=== PATIENT | male | born 1950 | race Caucasian/White ===

== ENCOUNTER 2017-09-05 12:06 | Outpatient (CLI) | payer OTHER ==
[2017-09-05 15:51] LABS: #Basophils 0.1 thou/uL (0.0-0.2); #Eosinphils 0.4 thou/uL (0.0-0.7); #Lymphocytes 2.3 thou/uL (1.20-3.40); #Monocytes 0.7 thou/uL (0.11-0.59); %Eosinophils 5.4 % (0.0-10.0); %Lymphocytes 31.2 % (21.0-51.0); Hematocrit 47.1 % (42.0-52.0); Mean Platelet Volume 6.8 fL (7.4-10.4); Red Blood Cell (RBC) Count 5.17 mill/uL (4.70-6.10); White Blood Cell (WBC) Count 7.4 thou/uL (4.8-10.8)
[2017-09-05 16:09] LABS: Anion Gap 16 mmol/L (10-20); BUN (Urea Nitrogen) 11 mg/dL (8.4-25.7); Calc. Creatinine Clearance 0 mL/min (70-130); Calcium 9.6 mg/dL (7.8-10.44); Carbon Dioxide 28 mmol/L (23-31); Chloride 101 mmol/L (98-107); Estimated GFR-MDRD 85
== END 2017-09-05 12:07 | disposition home or self-care (01) ==
LOC: LABBT 12:06
PROVIDERS: ATTEND Specialist
DX: Z01.818 Encounter for other preprocedural examination (principal); K40.90 Unilateral inguinal hernia, without obstruction or gangrene, not specified as recurrent
CPT/HCPCS: 80048; 85025; 93005; 93010

== ENCOUNTER 2017-09-07 10:51 | Day surgery (SDC) | payer OTHER ==
[2017-09-05 12:24] VITALS: BMI 28.5
[2017-09-07] MEDS ORDERED: Ketorolac Tromethamine 30 MG/ML VIAL ONE (12:34)
[2017-09-07] MEDS ORDERED: CEFAZOLIN/Water 2 GM/20 ML SYRINGE ONE (12:34)
[2017-09-07] MEDS ORDERED: Bupivacaine 0.25% HCL 30 ML VIAL ONE (13:44)
[2017-09-07] MEDS ORDERED: Lidocaine 2% w/Epinephrine 1:200K 20 ML VIAL ONE (13:44)
[2017-09-07] MEDS ORDERED: Fentanyl 250 MCG/5 ML VIAL ONE (13:45)
[2017-09-07] MEDS ORDERED: Bupivacaine PF 0.5% 30 ML VIAL ONE (14:06)
[2017-09-07] MEDS ORDERED: Glycopyrrolate 0.2 MG/ML 5 ML SYRINGE ONE (14:27)
[2017-09-07] MEDS ORDERED: Lidocaine 1% PF 5 ML VIAL ONE (14:27)
[2017-09-07] MEDS ORDERED: Ondansetron HCl/PF 4 MG/2 ML Vial ONE (14:27)
[2017-09-07] MEDS ORDERED: ePHEDrine/0.9% NaCl/PF SYRINGE 50 mg/10 ml ONE (14:27)
[2017-09-07] MEDS ORDERED: Dexamethasone 20 MG/5 ML VIAL ONE (14:27)
[2017-09-07] MEDS ORDERED: Succinylcholine Chloride 20 MG/ML 10 ml SYRINGE FS ONE (14:27)
[2017-09-07] MEDS ORDERED: Propofol 200 MG/20 ML VIAL ONE (14:27)
[2017-09-07] MEDS ORDERED: HYDROcodone/Acetaminophen 5/325 mg Tablet ONE (17:47)
--- NOTE | 2017-09-08 10:41 | OP ---
DATE OF PROCEDURE: 09/07/2017 PREOPERATIVE DIAGNOSIS: Left inguinal hernia. POSTOPERATIVE DIAGNOSIS: Left inguinal hernia, relatively small indirect hernia with cord lipoma. OPERATION PERFORMED: Robotic left inguinal hernia repair with placement of a large left 3DMax mesh patch. SURGEON: Robby Collins M.D. ANESTHESIA: General endotracheal. INDICATIONS: The patient is a 67-year-old white male. He is status post prior right inguinal herni a repair. This was performed as an open surgery with a mesh patch and plug. The patient had discom fort in his right groin prior to surgery and continued to have some right groin discomfort after santo sukhwinder. I was never convinced that his hernia was the source of his discomfort before or after surger y. He had no surgical problems. At this time, he presents complaining of left groin pain. On exam ination, he does have a small left inguinal hernia, but with significant discomfort with examination . He has opted for left inguinal hernia repair. I have recommended this as a laparoscopic/robotic repair. DESCRIPTION OF OPERATIVE: Informed consent was obtained. The patient was taken to the operating ro om where general endotracheal anesthesia was obtained with the patient in supine position. Bhatti ca theter was placed. Abdomen was trimmed of hair, prepped with ChloraPrep and draped in sterile fashi on. Local anesthetic was infiltrated and a 12 mm supraumbilical incision was created through which a Veress needle was passed into the peritoneal cavity. Pneumoperitoneum was established using carbo n dioxide up to a pressure of 15 mmHg. A 12 mm trocar port was passed through this same incision. Laparoscopic camera was passed through this port. Under direct vision, 2 additional 8 mm robotic po rts were placed on either side of midline at the same level. The robot was then docked to the ports and the camera and the operation was continued from the robotic console. I initially examined the right groin. The mesh plug was easily visualized. There was no evidence o f a right inguinal hernia. The plug was mobile. Attention was turned to the left. There was evidence of a small left inguinal hernia, as anticipate d. A transverse peritoneal incision was created several centimeters superior to the hernia. Preper itoneal dissection was carried out using a combination of blunt and sharp dissection extending deepl y. I dissected down to the pubic tubercle and J Carlos's ligament medially. The peritoneum was disse cted off the cord structures with reduction of the hernia. The vas deferens was dissected as it div erted medially. The cord lipoma was identified and reduced from the cord and resected. The lateral space was dissected to allow room for mesh placement. A large left 3DMax mesh patch was obtained and placed within the preperitoneal space where it fit ni bridget. It was secured in place with 3 interrupted sutures of 2-0 Vicryl, one of which was placed to the pubic tubercle, one to the anterior abdominal wall just medial to the epigastric vessels, and fi brenda one was placed on the superior aspect of the lateral tail of the mesh patch, above the iliopub ic tract. Hemostasis had been meticulous throughout the procedure. The peritoneum was then closed using a running suture of 3-0 Stratafix. The 12 mm fascial defect was closed with 0 Vicryl suture using a GraNee needle. All ports and instr uments were removed under direct vision. Pneumoperitoneum was carefully evacuated. Quarter percent Marcaine with epinephrine was infiltrated in each port site. Skin edges approximated with 4-0 Hardy cryl subcuticular suture. Dermabond was placed externally. There were no complications. The patie nt tolerated the procedure well and was taken to recovery room in stable condition.
== END 2017-09-07 20:45 | disposition home or self-care (01) ==
LOC: SDC 10:51
PROVIDERS: ATTEND Specialist
PROC: 0YU64JZ Supplement Left Inguinal Region with Synthetic Substitute, Percutaneous Endoscopic Approach (ICD-10-PCS; principal; 2017-09-07)
PROC: 8E0W4CZ Robotic Assisted Procedure of Trunk Region, Percutaneous Endoscopic Approach (ICD-10-PCS; principal; 2017-09-07)
DX: K40.90 Unilateral inguinal hernia, without obstruction or gangrene, not specified as recurrent (principal); D17.6 Benign lipomatous neoplasm of spermatic cord; I10 Essential (primary) hypertension; E78.00 Pure hypercholesterolemia, unspecified; R73.03 Prediabetes; M19.90 Unspecified osteoarthritis, unspecified site; I83.90 Asymptomatic varicose veins of unspecified lower extremity; N40.0 Benign prostatic hyperplasia without lower urinary tract symptoms; N52.9 Male erectile dysfunction, unspecified; H91.91 Unspecified hearing loss, right ear; H43.399 Other vitreous opacities, unspecified eye; M54.9 Dorsalgia, unspecified; G89.29 Other chronic pain; F41.9 Anxiety disorder, unspecified; Z79.84 Long term (current) use of oral hypoglycemic drugs; Z79.1 Long term (current) use of non-steroidal anti-inflammatories (NSAID); Z79.899 Other long term (current) drug therapy; Z90.89 Acquired absence of other organs; Z98.890 Other specified postprocedural states; Z87.891 Personal history of nicotine dependence; Z87.828 Personal history of other (healed) physical injury and trauma
CPT/HCPCS: C1781; J0131; J1100; J1885; J2001; J2405; J2704; J3010; S0020

== ENCOUNTER 2018-09-10 13:42 | Outpatient (CLI) | payer BC ==
--- NOTE | 2018-09-10 15:23 | ULT ---
RENAL ULTRASOUND: Comparison: CT abdomen/pelvis 01-14-16 History: Retention of urine. Technique: Multiplanar grayscale and color doppler images were obtained in a renal ultrasound. FINDINGS: Both kidneys demonstrate normal cortical echogenicity. There is a calcification in the right kidney m easuring 7 mm in greatest dimension. No hydronephrosis is seen on either side. In the midportion of t he right kidney, there is an area demonstrating the same echogenicity as the cortex. This could repre sent a lobulation. It could also represent a mass emanating from the anterior aspect of the right kid lyn. No lobulation or mass is seen in this location on prior CTs. The left kidney shows no focal abno rmality. The kidneys measures 13.4 and 14.2 cm in length on the right and left, respectively. Limited visualization of the urinary bladder unremarkable. IMPRESSION: Possible lobulation versus mass in the midportion of the right kidney. A CT of the abdomen per renal mass protocol is recommended for better visualization and evaluation of this region. POS: SEGUN
== END 2018-09-10 13:43 | disposition home or self-care (01) ==
LOC: BICULT 13:42
PROVIDERS: ATTEND Urology
DX: R33.9 Retention of urine, unspecified (principal)
CPT/HCPCS: 36415; 76770; 80048; 81001; 87086

== ENCOUNTER 2018-09-18 13:51 | Outpatient (CLI) | payer BC ==
[~2018-09-18 13:51] MED LIST: Iopamidol 370 76% 100 ML VIAL ONE
--- NOTE | 2018-09-18 17:46 | CT ---
CT OF ABDOMEN WITH AND WITHOUT CONTRAST RENAL MASS PROTOCOL 09/18/18 CLINICAL HISTORY: Contour abnormality of the mid right kidney on recent ultrasound, 09/10/18. FINDINGS: Lobularity of the right kidney noted on preceding ultrasound corresponds to the benign appearing efrain l parenchyma by CT imaging. There are several small hypodensities involving the renal parenchyma bila terally indicating cysts, although too small to definitively characterize. There is localized atrophy of the mid and upper left kidney. No hydronephrosis of nephrolithiasis. Scattered vascular disease is present. No acute abnormality of the solid abdominal organs. No free ai r or ascites. Bowel is incompletely assessed without enteric contrast administration. The visualized lung bases reveal no evidence of consolidation or effusion. There is punctate subpleural nodularity o f the lateral left lower lobe, inferiorly. No acute osseous pathology, with scattered osseous degener ative changes present. IMPRESSION: 1. No suspicious renal mass. Prior ultrasound finding is attributable to lobularity of the renal parenchyma. There are several small hypodensities of the kidneys bilaterally, statistically favoring cysts. 2. Localized atrophy of the upper to mid left kidney. 3. Subpleural nodularity of the left lung base. Recommend dedicated CT thorax for further assess ment. POS: SEGUN
== END 2018-09-18 13:52 | disposition home or self-care (01) ==
LOC: BICCT 13:51
PROVIDERS: ATTEND Urology
DX: N28.1 Cyst of kidney, acquired (principal); N28.9 Disorder of kidney and ureter, unspecified; R33.9 Retention of urine, unspecified; N26.1 Atrophy of kidney (terminal); R91.8 Other nonspecific abnormal finding of lung field
CPT/HCPCS: 74170

== ENCOUNTER 2018-10-01 15:37 | Outpatient (CLI) | payer BC ==
--- NOTE | 2018-10-01 16:56 | RAD ---
PA AND LATERAL CHEST: HISTORY: Pulmonary nodule noted on CT examination. FINDINGS: Heart size and mediastinum are within normal limits. The lungs are clear of infiltrates. A small pl eural-based area of nodularity is seen in the left base on CT examination. This is not definitely ap preciated on chest film. No additional nodules are seen. IMPRESSION: Unremarkable chest. The small pleural-based nodule in the left base noted on CT is not seen on plain film. POS: H
== END 2018-10-01 15:38 | disposition home or self-care (01) ==
LOC: BICRAD 15:37
PROVIDERS: ATTEND Urology
DX: R91.1 Solitary pulmonary nodule (principal); R33.9 Retention of urine, unspecified
CPT/HCPCS: 71046

== ENCOUNTER 2019-11-21 19:31 | Inpatient (IN) | payer BC, MEDICARE, OTHER ==
[~2019-11-21 19:31] MED LIST changes: -Iopamidol 370 76% 100 ML VIAL ONE; +Iopamidol-370 76% 500 ML 1 ML ONE
[2019-11-21 20:13] LABS: #Basophils 0.1 thou/uL (0.0-0.2); #Eosinphils 0.4 thou/uL (0.0-0.7); #Lymphocytes 2.7 thou/uL (1.20-3.40); #Monocytes 0.7 thou/uL (0.11-0.59); #Neutrophils 4.7 thou/uL (1.40-6.50); %Eosinophils 5.1 % (0.0-10.0); %Lymphocytes 31.2 % (21.0-51.0); %Monocytes 8.2 % (0.0-10.0); %Neutrophils 54.6 % (42.0-75.0); Hemoglobin 14.9 g/dL (14.0-18.0); Mean Corpuscular HGB CONC 32.8 g/dL (32.0-36.0); Mean Corpuscular Hemoglobin 29.2 pg (27.0-31.0); Mean Corpuscular Volume 88.9 fL (78.0-98.0); Mean Platelet Volume 6.8 fL (7.4-10.4); Platelet Count 243 thou/uL (130-400); RBC Distribution Width 12.4 % (11.5-14.5); White Blood Cell (WBC) Count 8.5 thou/uL (4.8-10.8)
--- NOTE | 2019-11-21 20:14 | RAD ---
Chest one view HISTORY: Chest pain. COMPARISON: 10/01/2018. FINDINGS: Cardiac silhouette is magnified and upper limits of normal in size. Diffuse coarsened inter stitium is similar in appearance to the previous exam. Mediastinum is midline. No lobar consolidation or evidence of pneumothorax. Right lateral costophrenic angle is excluded from the imag e. IMPRESSION: Chronic-type findings are stable. No active cardiopulmonary abnormalities are demonstrate d.
[2019-11-21 20:33] LABS: ALT (SGPT) 28 U/L (8-55); AST (SGOT) 20 U/L (5-34); Albumin 4.4 g/dL (3.4-4.8); Alkaline Phosphatase 101 U/L (40-110); Anion Gap 11 mmol/L (10-20); BUN (Urea Nitrogen) 10 mg/dL (8.4-25.7); Bilirubin, Total 1.2 mg/dL (0.2-1.2); CK (CPK) 92 U/L (30-200); Calc. Creatinine Clearance 0 mL/min (70-130); Calcium 9.3 mg/dL (7.8-10.44); Carbon Dioxide 30 mmol/L (23-31); Chloride 104 mmol/L (98-107); Estimated GFR-MDRD 60; Globulin 2.7 g/dL (2.4-3.5); Glucose 128 mg/dL (80-115); Potassium 3.8 mmol/L (3.5-5.1); Protein, Total 7.1 g/dL (5.8-8.1); Sodium 141 mmol/L (136-145)
[2019-11-21] MEDS ORDERED: Aspirin Chewable 81 MG TAB ONE (20:35)
[2019-11-21] MEDS ORDERED: Nitroglycerin 2% Ointment 1 INCH/1 GM Packet ONE (20:36)
[2019-11-21 20:55] LABS: CKMB 1.4 ng/mL (0-6.6)
--- NOTE | 2019-11-21 21:04 | CT ---
CT arteriogram chest with IV contrast and 3-D imaging CT arteriogram abdomen with IV contrast and 3-D imaging HISTORY: Chest and abdomen pain. Radiation to the back. FINDINGS: There is good contrast opacification of the central pulmonary arteries and the aorta with n ormal branching of the great vessels. Arterial calcification most pronounced at the coronary arteries. No evidence of intimal dissection. Normal caliber. No adjacent fluid. Visceral arteries of the abdomen are patent. Good flow into each common iliac artery. Multiple small left renal arteries. Tiny nodules are present within each lung, including 5 mm nodules within the right upper, lower, and middle lobes and a 7 mm nodule at the left lateral costophrenic angle. No pleural fluid or mediastinal adenopathy. Bilateral pars interarticularis defects are evident at the lowest lumbar leve l on the inferior most image. Small cyst at the superior pole of the right kidney. IMPRESSION: No CT evidence of aortic dissection or injury. Atherosclerosis. Multiple small bilateral parenchymal lung nodules. Please consider follow-up CT in 6 months to evalua te for stability.
[2019-11-21 23:34] LABS: Troponin I 0.099 ng/mL (< 0.028)
[2019-11-22] MEDS ORDERED: Promethazine HCl 12.5 MG in Sodium Chloride 0.9% 50 ML IVPB PRN (01:09)
[2019-11-22] MEDS ORDERED: Ondansetron PF 4 MG/2 ML Vial IVP PRN ×2 (01:09→21:43)
[2019-11-22] MEDS ORDERED: cloNIDine 0.1 MG TAB PO PRN (01:09)
[2019-11-22] MEDS ORDERED: Morphine 2 MG/ML SYRINGE SLOW IVP PRN ×2 (01:09→21:43)
[2019-11-22] MEDS ORDERED: hydrALAZINE 20 MG/ML VIAL SLOW IVP PRN ×2 (01:09→21:43)
[2019-11-22] MEDS ORDERED: Bisacodyl 10 MG SUPP PR PRN ×2 (01:11→21:43)
[2019-11-22] MEDS ORDERED: Bisacodyl 5 MG TAB PO PRN ×2 (01:11→21:43)
[2019-11-22] MEDS ORDERED: HYDROcodone/Acetaminophen 5/325 mg Tablet PO PRN (01:11)
[2019-11-22] MEDS ORDERED: Acetaminophen 325 MG TAB PO PRN (01:11)
[2019-11-22] MEDS ORDERED: Dextrose 5% in Water 1,000 ML IV PRN ×2 (01:14→21:59)
[2019-11-22] MEDS ORDERED: HumaLOG 300 UNITS/3 ML VIAL SC PRN (01:14)
[2019-11-22] MEDS ORDERED: Dextrose 50% Abboject 50 ML SYRINGE SLOW IVP PRN (01:14)
--- NOTE | 2019-11-22 01:14 | PDOC.HHP ---
Hospitalist HPI - History of Present Illness Chest/jaw/arm pain History of Present Illness: Patient is a 69 year old with PMH HTN, HLD, hernia, aneurism of aorta who presents for L arm pain, chest pain, jaw pain that began today, patient reports checking BP and was elevated, in ED was SBP 190s, patient received ASA and nitropaste, which improved BP to SBP 130s and resolved symptoms. Patient takes lisinopril at home and BP usually controlled he does not know why BP is higher than usual, denies history of stent or bypass. In ED, CT chest dissection protocol revealed lung nodules recommended f/u imaging in 6 months, CXR without acute findings, EKG NSR w/ nonspecific T wave abnormalities, troponin 0.101 and 0.099, patient admitted to [facility] for further evaluation. ED Course: current meds atorvastatin Fay Nov 21, 2019 20:03 CHERIE Lion Alexanda TABLET : Strength - 40 mg : ORAL Patient Dose: 10 mg Oral once a day (at bedtime). tamsulosin [facility] Nov 21, 2019 20:04 CHERIE Lion Alexanda CAPSULE, EXT RELEASE 24 HR : Strength - 0.4 mg : ORAL Patient Dose: 1 tab(s) Oral once a day (at bedtime). metFORMIN [facility] Nov 21, 2019 20:04 CHERIE Lion Alexanda tablet : Strength - 500 mg : ORAL Patient Dose: 1 tab(s) Oral once a day. lisinopril [facility] Nov 21, 2019 20:05 CHERIE Lion Alexanda tablet : Strength - 10 mg : ORAL Patient Dose: 1 tab(s) Oral once a day. VITAL SIGNS [facility] Nov 21, 2019 21:34 CHERIE Lion Alexanda BP: 132/86 Pulse: 70 Resp: 16 Temp: 97.9 (Oral) Pain: 0 O2 sat: 93 on (Room Air) Time: 11/21/2019 21:34. EKG reviewed, NSR rate 62 nonspecific T wave abnormalities Hospitalist ROS - Review of Systems Constitutional: denies: fever, chills, sweats, weakness, malaise, other Eyes: denies: pain, vision change, conjunctivae inflammation, eyelid inflammation, redness, other ENT: denies: ear pain, ear discharge, nose pain, nose discharge, nose congestion , mouth pain, mouth swelling, throat pain, throat swelling, other Cardiovascular: reports: chest pain Gastrointestinal: denies: nausea, vomiting, abdominal pain, diarrhea, constipation, melena, hematochezia, other Genitourinary: denies: dysuria, frequency, incontinence, hematuria, retention, other Musculoskeletal: reports: neck pain, arm pain Neurological: denies: weakness, numbness, incoordination, change in speech, confusion, seizures, other All other systems reviewed; all pertinent +/- noted in HPI/Subj - Medication Medications: see HPI Hospitalist History - Past Medical History Other Medical History: Past medical history includes history of diabetes, Past medical history includes history of hyperlipidemia, Past medical history includes history of hypertension, hernia x3, aortic aneurysm. - Past Surgical History Other Surgical History: tonsillectomy, hernia repair x 3 - Family History Family History: reports: no pertinent history - Social History Other Social History: Patient denies alcohol use, Patient is a former drug user, abused marijuana, abused methamphetamines, Drug history notes: 12 MONTHS, Patient is a former tobacco user, smoked cigarettes, Patient quit smoking more than 10 years ago. - Exam General Appearance: NAD, awake alert Eye: PERRL, anicteric sclera ENT: normocephalic atraumatic, no oropharyngeal lesions, moist mucosa Neck: supple, symmetric, no JVD, no thyromegaly, no lymphadenopathy, no carotid bruit Heart: RRR, no murmur, no gallops, no rubs, normal peripheral pulses Respiratory: CTAB, no wheezes, no rales, no ronchi, normal chest expansion, no tachypnea, normal percussion Gastrointestinal: soft, non-tender, non-distended, normal bowel sounds, no palpable masses, no hepatomegaly, no splenomegaly, no bruit Extremities: no cyanosis, no clubbing, no edema Skin: normal turgor, no lesions, no rashes Neurological: cranial nerve grossly intact, normal sensation to touch, no weakness, no focal deficits, no new deficit Musculoskeletal: normal tone, normal strength, no muscle wasting Psychiatric: normal affect, normal behavior, A&O x 3 Hospitalist Results - Labs Result Diagrams: 11/21/19 20:04 11/21/19 20:04 Lab results: WBC 8.5 thou/uL (4.8-10.8) 11/21/19 20:04 Hgb 14.9 g/dL (14.0-18.0) 11/21/19 20:04 Hct 45.4 % (42.0-52.0) 11/21/19 20:04 MCV 88.9 fL (78.0-98.0) 11/21/19 20:04 Plt Count 243 thou/uL (130-400) 11/21/19 20:04 Neutrophils % 54.6 % (42.0-75.0) 11/21/19 20:04 Sodium 141 mmol/L (136-145) 11/21/19 20:04 Potassium 3.8 mmol/L (3.5-5.1) 11/21/19 20:04 Chloride 104 mmol/L (98-107) 11/21/19 20:04 Carbon Dioxide 30 mmol/L (23-31) 11/21/19 20:04 BUN 10 mg/dL (8.4-25.7) 11/21/19 20:04 Creatinine 1.20 mg/dL (0.7-1.3) 11/21/19 20:04 Glucose 128 mg/dL (80-115) H 11/21/19 20:04 Calcium 9.3 mg/dL (7.8-10.44) 11/21/19 20:04 Total Bilirubin 1.2 mg/dL (0.2-1.2) 11/21/19 20:04 AST 20 U/L (5-34) 11/21/19 20:04 ALT 28 U/L (8-55) 11/21/19 20:04 Alkaline Phosphatase 101 U/L (40-110) 11/21/19 20:04 Creatine Kinase 92 U/L (30-200) 11/21/19 20:04 CK-MB (CK-2) 1.4 ng/mL (0-6.6) 11/21/19 20:04 Troponin I 0.099 ng/mL (< 0.028) H 11/21/19 23:00 Serum Total Protein 7.1 g/dL (5.8-8.1) 11/21/19 20:04 Albumin 4.4 g/dL (3.4-4.8) 11/21/19 20:04 - EKG Interpretation EKG: reviewed, see HPI Hospitalist H&P A/P - Plan Plan: Patient is a 69 year old with PMH HTN, HLD, hernia, aneurism of aorta who presents for L arm pain, chest pain, jaw pain that began today, patient reports checking BP and was elevated, in ED was SBP 190s, patient received ASA and nitropaste, which improved BP to SBP 130s and resolved symptoms. # HTn urgency - improved with nitropaste, continue nitro for now and consult cardiology, increase lisinopril dose to 20mg daily, PRN meds available in chart # elevated troponin - continue to trend, consult cardiology # DM - continue metformin, SSI # HLD - continue statin # history of drug abuse - given acute HTN urgency, check UDS, used to use methamphetamine, denies drug use
[2019-11-22 04:54] LABS: #Basophils 0.1 thou/uL (0.0-0.2); #Eosinphils 0.4 thou/uL (0.0-0.7); #Lymphocytes 2.1 thou/uL (1.20-3.40); #Monocytes 0.9 thou/uL (0.11-0.59); %Basophils 1.2 % (0.0-1.0); %Eosinophils 4.4 % (0.0-10.0); %Lymphocytes 24.7 % (21.0-51.0); %Monocytes 10.2 % (0.0-10.0); %Neutrophils 59.4 % (42.0-75.0); Hemoglobin 13.9 g/dL (14.0-18.0); Mean Corpuscular HGB CONC 33.6 g/dL (32.0-36.0); Mean Corpuscular Hemoglobin 29.7 pg (27.0-31.0); Mean Corpuscular Volume 88.3 fL (78.0-98.0); Mean Platelet Volume 6.8 fL (7.4-10.4); Platelet Count 231 thou/uL (130-400); RBC Distribution Width 12.2 % (11.5-14.5); White Blood Cell (WBC) Count 8.5 thou/uL (4.8-10.8)
[2019-11-22 05:18] LABS: Anion Gap 12 mmol/L (10-20); BUN (Urea Nitrogen) 10 mg/dL (8.4-25.7); Calc. Creatinine Clearance 105 mL/min (70-130); Calcium 8.7 mg/dL (7.8-10.44); Carbon Dioxide 25 mmol/L (23-31); Chloride 106 mmol/L (98-107); Estimated GFR-MDRD 77; Glucose 99 mg/dL (80-115); Potassium 3.9 mmol/L (3.5-5.1); Sodium 139 mmol/L (136-145)
[2019-11-22 05:22] LABS: Troponin I 0.119 ng/mL (< 0.028)
--- NOTE | 2019-11-22 08:09 | ULT ---
Exam: Right upper quadrant ultrasound: HISTORY: Abdominal pain COMPARISON: None FINDINGS: Liver: Increased echogenicity suggesting diffuse fatty infiltration. Gallbladder: No evidence of gallbladder calculi, gallbladder wall thickening, or pericholecystic flui d. Common bile duct: The common duct is normal in caliber measuring 0.3 cm in diameter. Pancreas: Limited visualized portions of the pancreas demonstrate a normal sonographic appearance. Right kidney: Right kidney demonstrates a normal sonographic appearance. The right kidney measures 1 3.3 cm in length. IVC: The visualized IVC demonstrates a normal sonographic appearance. Aorta: Mild atherosclerotic plaque and calcifications with mild ectasia of the proximal abdominal aor ta. IMPRESSION: 1. Fatty infiltration of the liver. 2. No gallbladder calculi are seen, and the common duct is normal in caliber.
[2019-11-22] MEDS: Tamsulosin HCl 0.4 MG CAP PO SCH (08:44)
[2019-11-22] MEDS: Nitroglycerin 2% Ointment 1 INCH/1 GM Packet TOP SCH ×2 (08:44→23:27)
[2019-11-22] MEDS ORDERED: Lisinopril 20 MG TAB PO SCH ×2 (09:00)
[2019-11-22] MEDS ORDERED: metFORMIN 500 MG TAB PO SCH (09:00)
[2019-11-22] MEDS ORDERED: Enoxaparin Sodium 40 MG/0.4 ML SYRINGE SC SCH (09:00)
[2019-11-22] MEDS ORDERED: Polyethylene Glycol 3350 17 GM Packet PO SCH (09:00)
[2019-11-22 09:22] LABS: Cocaine Metabolite Screen Not Detected (NotDetected); Medtox Reader # READER 4; Phencyclidine (PCP) Not Detected (NotDetected); THC/Cannabinoid Screen Not Detected (NotDetected)
[2019-11-22 09:23] LABS: Amphetamine Not Detected (NotDetected); Barbiturates Screen Not Detected (NotDetected); Benzodiazepine Screen Not Detected (NotDetected); Medtox Control Line Valid? VALID (VALID); Methadone Not Detected (NotDetected); Methamphetamine Not Detected (NotDetected); Opiate Screen Detected (NotDetected); Oxycodone Screen Not Detected (NotDetected); Tricyclic Screen Not Detected (NotDetected)
[2019-11-22] MEDS ORDERED: Iopamidol 370 76% 100 ML VIAL ONE (09:47)
[2019-11-22 10:36] LABS: Troponin I 0.106 ng/mL (< 0.028)
[2019-11-22] MEDS ORDERED: Magnesium Sulfate 1 GM/2 ML VIAL ONE (12:58)
[2019-11-22] MEDS ORDERED: Potassium Chloride 60 MEQ/30 ML VIAL ONE (12:58)
[2019-11-22] MEDS ORDERED: Cardioplegic Soln 1,000 ML BAG ONE (12:58)
[2019-11-22] MEDS ORDERED: Norepinephrine 4 MG/4 ML VIAL ONE (12:58)
[2019-11-22] MEDS ORDERED: Calcium Chloride 1 GM/10 ML Abboject SYRINGE ONE (12:58)
[2019-11-22] MEDS ORDERED: Heparin 30,000 units/30 ml VIAL ONE (12:58)
[2019-11-22] MEDS ORDERED: Protamine Sulfate 250 MG/25 ML VIAL ONE (12:58)
[2019-11-22] MEDS ORDERED: Vecuronium 10 MG VIAL ONE ×2 (12:58→18:30)
[2019-11-22] MEDS ORDERED: Sodium Bicarb 50 MEQ/50 ML Abboject 8.4% SYRINGE ONE (12:58)
[2019-11-22] MEDS ORDERED: Thrombin 5000 UNITS/5 ML VIAL ONE (12:58)
[2019-11-22] MEDS ORDERED: Papaverine 60 MG/2 ML VIAL ONE (12:58)
[2019-11-22] MEDS ORDERED: Heparin 5,000 UNITS/ML VIAL ONE (12:58)
[2019-11-22] MEDS ORDERED: Aminocaproic Acid 5 GM/20 ML VIAL ONE (12:58)
[2019-11-22] MEDS ORDERED: PHENYLEPHRINE-NS 100 MCG/ML 10 ML SYRINGE ONE (12:58)
[2019-11-22] MEDS ORDERED: Lidocaine 2% PF 5 ML VIAL ONE (12:58)
[2019-11-22] MEDS ORDERED: Communication Order-Pharmacy FS SCH (13:15)
[2019-11-22] MEDS ORDERED: Heparin (Artline) 1,000 ML ONE (13:52)
--- NOTE | 2019-11-22 13:52 | PDOC.HOSPP ---
- Subjective Encounter Date: 11/22/19 Encounter Time: 13:51 Subjective: Mr. Suárez was seen today in follow-up of left arm pain. He does not have any new complaints. - Objective Vital Signs & Weight: Vital Signs (12 hours) Temp Pulse Resp BP BP Pulse Ox 11/22/19 11:09 98.4 F 60 14 131/69 95 11/22/19 08:40 94 L 11/22/19 07:11 98.5 F 60 16 135/74 94 L 11/22/19 03:30 131/63 11/22/19 03:27 57 L 19 161/72 H 95 11/22/19 03:18 61 25 H 178/88 H 97 Weight Weight 220 lb 14.4 oz Result Diagrams: 11/22/19 04:36 11/22/19 04:36 Additional Labs: Accuchecks 11/22/19 10:52 POC Glucose 96 Hospitalist ROS - Medication Medications: Active Medications Generic Name Dose Route Start Last Admin Trade Name Freq PRN Reason Stop Dose Admin Acetaminophen 650 mg 11/22/19 01:11 11/22/19 08:43 Tylenol PO 650 mg Q4H PRN Administration Headache/Fever/Mild Pain (1-3) Lisinopril 20 mg 11/22/19 09:00 11/22/19 08:44 Zestril PO 20 mg QAM SEEMA Administration Metformin HCl 500 mg 11/22/19 09:00 11/22/19 08:41 Glucophage PO Not Given QAM SEEMA Morphine Sulfate 2 mg 11/22/19 01:09 11/22/19 03:20 Morphine SLOW IVP 2 mg Q4H PRN Administration Breakthrough Pain Nitroglycerin 1 inch 11/22/19 09:00 11/22/19 08:44 Nitro-Bid 2% Ointment TOP Not Given BID SEEMA Pantoprazole Sodium 40 mg 11/22/19 09:00 11/22/19 08:43 Protonix PO 40 mg DAILY SEEMA Administration Polyethylene Glycol 17 gm 11/22/19 09:00 11/22/19 08:44 Miralax PO Not Given DAILY SEEMA Tamsulosin HCl 0.4 mg 11/22/19 09:00 11/22/19 08:44 Flomax PO 0.4 mg QAM SEEMA Administration - Exam Eye: PERRL Heart: RRR, no murmur, no gallops, no rubs, normal peripheral pulses Respiratory: CTAB, no wheezes, no rales, no ronchi, normal chest expansion Gastrointestinal: soft, non-tender, non-distended, normal bowel sounds Hosp A/P (1) Left arm pain Code(s): M79.602 - PAIN IN LEFT ARM Status: Acute (2) Hypertension Code(s): I10 - ESSENTIAL (PRIMARY) HYPERTENSION Status: Chronic (3) Hyperlipidemia Code(s): E78.5 - HYPERLIPIDEMIA, UNSPECIFIED Status: Chronic - Plan * Left arm pain- probable angina- his troponins are slightly elevated * Plan is for [facility] today * HTN-blood pressure is controlled- continue Lisinopril * Hyperlipidemia- continue lipitor
[2019-11-22] MEDS ORDERED: Lidocaine 1% (PF) 30 ML VIAL ONE (13:53)
[2019-11-22] MEDS ORDERED: Heparin 10,000 UNITS/1 ML VIAL ONE (15:13)
[2019-11-22] MEDS ORDERED: Verapamil 5 MG/2 ML VIAL ONE (15:13)
[2019-11-22] MEDS ORDERED: Nitroglycerin 100MG/250ML BOT 250 ML ONE (15:13)
[2019-11-22] MEDS ORDERED: Fentanyl 250 MCG/5 ML VIAL ONE (16:08)
[2019-11-22] MEDS ORDERED: Ketamine 50 MG/ML (10ML VIAL) ONE (16:10)
[2019-11-22] MEDS ORDERED: Albumin 5% 500 ML ONE (16:10)
[2019-11-22] MEDS ORDERED: Midazolam HCl 5 mg/5 ml Vial ONE ×2 (16:18→16:43)
[2019-11-22] MEDS ORDERED: Acetaminophen/Codeine 30-300mg Tablet PO PRN ×2 (16:28)
[2019-11-22] MEDS ORDERED: Nitroglycerin 0.4 MG TAB (25 Tab Bottle) SL PRN (16:28)
[2019-11-22] MEDS ORDERED: Sodium Chloride 0.9% 200 ML IV PRN (16:28)
--- NOTE | 2019-11-22 16:32 | CON ---
DATE OF CONSULTATION: 11/22/2019 INDICATION FOR CONSULTATION: A 69-year-old gentleman, with what appears to be unstable angina type symptoms with pain in the left arm and radiating to the jaw and the neck area. He has had several occurrences of this, usually when he is doing just minimal exertion. He has multiple risk factors of coronary artery disease, which include diabetes, hypertension, dyslipidemia, family history of heart disease, and history of tobacco abuse. He stopped smoking several years ago, but he did smoke for about 10 to 12 years. He said he smoked up to two packs a day. He presented to the hospital after he had been complaining of the chest discomfort. His EKG shows a normal sinus rhythm with some nonspecific ST-segment changes. Cardiac enzymes originally were slightly elevated at 0.099, increased up to 0.119 and back down to 0.106. At this time, he is relatively stable. He did have a one episode of chest discomfort last night, he said despite having nitroglycerin paste. PAST MEDICAL HISTORY: Significant for hernia repairs and also the hypertension and dyslipidemia. SOCIAL HISTORY: He has a history of tobacco abuse in the past, but no longer smokes. FAMILY HISTORY: Positive for coronary artery disease. ALLERGIES: NONE. PRESENT MEDICATIONS: Include; 1. Atorvastatin 40 mg a day. 2. Lovenox, he has been given this morning. 3. Lisinopril 20 mg a day. 4. Metformin 500 mg q.a.m. 5. Nitroglycerin has been placed. 6. He is on Protonix. 7. He is also given the Flomax 0.4 mg p.o. q.a.m. 8. He is on other p.r.n. medications. REVIEW OF SYSTEMS: He complains of some visual changes in the left eye. He had some flashing type sensation, which started about a couple weeks ago. He had no significant pulmonary complaints, but does state he has a lower lobe nodule. He is uncertain as to which side it is with his right or left. [facility] did not believe it was anything significant and he was advised to undergo a repeat CT scan about 6 months to a year after he previously had one performed. He also has a history of what he says in the aortic aneurysm, which is in the upper chest area, so he says, but this is also being followed, but apparently it is not enlarging, but repeat CT scan was scheduled for the next 1 to 2 months from now. He had no significant GI or complaints. He had no significant musculoskeletal complaints. He states he did have some foot pain. He has undergone bilateral greater saphenous vein ablation in [place]. He also has had some foot discomfort. I do not evidence some nodules apparently in his foot, which may be due to some peripheral neuropathy. Neurologically, no history of seizures or syncope. LABORATORY DATA: Shows a sodium 139, potassium was 3.9, BUN was 10 with a creatinine 0.97, and blood sugar was 99 on last check. Troponin I was as noted above. Hematology shows a WBC of 8.5, hemoglobin 13.9, and platelet count was 231,000, otherwise unremarkable laboratory data and EKG as noted above. IMPRESSION AND PLAN: 1. A 69-year-old patient with multiple risk factors for coronary artery disease, who presented with unstable angina type symptoms. We will advise him to undergo cardiac catheterization to rule out evidence of severe coronary artery disease. I have explained the procedure and the risks to him to include bleeding, infection, possibly a myocardial infarction, CVA, renal insufficiency, allergic contrast reaction, and the possibility of and he agrees to proceed. We will plan for cardiac catheterization later today. 2. History of diabetes. This is under relatively good control at this time. 3. Hypertension. This is also well controlled at the time. We will continue his medications. 4. History of dyslipidemia. He will remain on a statin medications. Further recommendations will follow after the cardiac catheterization. Job ID: [id number]
[2019-11-22] MEDS ORDERED: Heparin 10,000 UNITS/1 ML VIAL 30,000 UNITS in Sodium Chloride 0.9% 1,000 ML FS SCH (16:45)
[2019-11-22 17:24] LABS: Troponin I 0.145 ng/mL (< 0.028)
[2019-11-22] MEDS ORDERED: Sodium Chloride 0.9% 20 ML ONE (17:26)
[2019-11-22] MEDS ORDERED: Dexamethasone 4 mg/ml Vial ONE (20:30)
[2019-11-22] MEDS ORDERED: Bupivacaine PF 0.5% 30 ML VIAL ONE (20:30)
[2019-11-22] MEDS ORDERED: Atorvastatin Calcium 20 MG TAB PO SCH (21:00)
[2019-11-22] MEDS ORDERED: Norepinephrine 8 MG/0.9% NS 250 ML ONE (21:32)
[2019-11-22 21:33] LABS: Actual Bicarbonate (HCO3a) 22.9 mEq/L (22-28); Base Excess (BEa) -1.6 mEq/L (-2.0 to +3.0); CO2 Tension 37.7 mmHg (35.0-45.0); Calcium, Ionized 1.08 mmol/L (1.12-1.30); Carboxyhemoglobin (COHb) 0.6 gm% (0.0-3.0); Hemoglobin (Hb) 11.8 g/dL (14.0-18.0); O2 Tension (PaO2) 193.5 mmHg (> 80.0); Potassium - ABG Lab 4.03 mmol/L (3.70-5.30)
--- NOTE | 2019-11-22 21:33 | CON ---
DATE OF CONSULTATION: 11/22/2019 HISTORY OF PRESENT ILLNESS: Mr. 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 He has undergone evaluation including cardiac catheterization today revealing severe critical three vessel disease. Bypassable targets included LAD, OM and right coronary artery. I have been asked to see him for urgent coronary bypass grafting. PAST MEDICAL HISTORY: 1. Coronary artery disease. 2. Dyslipidemia. 3. Hypertension. 4. Diabetes mellitus. 5. History of herniorrhaphy x3. PAST SURGICAL HISTORY: 1. Herniorrhaphy x3. 2. Tonsillectomy. SOCIAL HISTORY: He quit smoking in the mid 80s. He does smoke marijuana occasionally. He uses alcohol occasionally. PHYSICAL EXAMINATION: VITAL SIGNS: Heart rate is 71, regular. Blood pressure is 160/90. HEENT: Sclerae nonicteric. Pupils are equal round bilaterally. NECK: Supple without bruit. CHEST: Clear bilaterally. HEART: Rhythm is regular without murmur. ABDOMEN: Soft, nontender with no mass. EXTREMITIES: No cyanosis, clubbing or edema. VASCULAR: Palpable carotid, radial, femoral, dorsalis pedis pulses bilaterally. VENOUS: He has had bilateral saphenous ablation. I interrogated his leg ultrasound in the industrial laborer and there is only one short segment of usable saphenous vein in the lower left leg, which we will explore. LABORATORY DATA: Of note, hemoglobin is 14.9, platelet count 243, 000. Creatinine is 1.2, potassium is 3.8. ASSESSMENT: This is a very pleasant 69-year-old gentleman with severe three-vessel disease and chest pain. I have discussed urgent coronary bypass grafting with him and he is agreeable to proceed. Risks, benefits, and options have been discussed with him and we will take him to the OR today. We will plan for left internal mammary artery, left radial and potentially greater saphenous vein from his lower left leg or a right internal mammary artery. Job ID: [id number]
[2019-11-22 21:35] LABS: Puncture Site ALINE
[2019-11-22 21:36] LABS: ALV-art Gradient 187.175 (0-20)
[2019-11-22] MEDS ORDERED: Nitroglycerin 50 MG/250 ML BOT 250 ML IVPB PRN (21:43)
[2019-11-22] MEDS ORDERED: Guaifenesin DM 100-10/5 ML UDCUP PO PRN (21:43)
[2019-11-22] MEDS ORDERED: Potassium Chloride 20 MEQ/100 ML PREMIX BAG IVPB PRN (21:43)
[2019-11-22] MEDS ORDERED: Magnesium 2 GM/50 ML 2 GM in Premix Bag 1 BAG IVPB SCH (21:43)
[2019-11-22] MEDS ORDERED: Promethazine HCl 25 MG/ML VIAL IM PRN (21:43)
[2019-11-22] MEDS ORDERED: Mag-Al 1200 mg/1200 mg/30 ML UDCUP PO PRN (21:43)
[2019-11-22] MEDS ORDERED: Hetastarch 6% 500 ML 500 ML IVPB PRN (21:43)
[2019-11-22] MEDS ORDERED: Norepinephrine 8 MG/0.9% NS 250 ML IVPB PRN (21:43)
[2019-11-22] MEDS ORDERED: Fentanyl 100 MCG/2 ML VIAL SLOW IVP PRN (21:43)
[2019-11-22 21:53] LABS: #Basophils 0.1 thou/uL (0.0-0.2); #Eosinphils 0.3 thou/uL (0.0-0.7); #Lymphocytes 2.4 thou/uL (1.20-3.40); #Monocytes 0.6 thou/uL (0.11-0.59); #Neutrophils 9.1 thou/uL (1.40-6.50); %Basophils 0.5 % (0.0-1.0); %Eosinophils 2.5 % (0.0-10.0); %Lymphocytes 18.9 % (21.0-51.0); Hemoglobin 11.5 g/dL (14.0-18.0); Mean Corpuscular HGB CONC 33.2 g/dL (32.0-36.0); Mean Corpuscular Hemoglobin 29.7 pg (27.0-31.0); Mean Corpuscular Volume 89.3 fL (78.0-98.0); Mean Platelet Volume 6.9 fL (7.4-10.4); Platelet Count 187 thou/uL (130-400); RBC Distribution Width 12.3 % (11.5-14.5); Red Blood Cell (RBC) Count 3.89 mill/uL (4.70-6.10); White Blood Cell (WBC) Count 12.4 thou/uL (4.8-10.8)
[2019-11-22 21:54] LABS: INR-International Normal Ratio 1.4; PTT 33.5 SEC (22.9-36.1); Prothrombin Time 17.3 SEC (12.0-14.7)
--- NOTE | 2019-11-22 21:55 | RAD ---
RADIOGRAPH CHEST 1 VIEW: Supine DATE: 11/22/2019 9:08 PM HISTORY: 69-year-old male status post open heart surgery. FINDINGS: There is no airspace density or pulmonary edema. The lateral costophrenic angles are sharp. Supine po sitioning makes this study insensitive for the detection of pneumothorax. Sternotomy wires. Right subclavian central venous catheter with distal tip overlying right atrium. Left paramedian chest tube s x3, 1 obliquely oriented across right lower chest, one near midline and the other with distal portion horizontally across left mid-upper chest.. Endotracheal tube distal tip 6.5 cm superior to ca torsten. IMPRESSION: 1. No acute pulmonary findings. 2. Status post recent open heart surgery with life support lines as mentioned above.
[2019-11-22] MEDS ORDERED: Dextrose 50% Abboject 50 ML SYRINGE IVP PRN (21:59)
[2019-11-22 22:16] LABS: Anion Gap 15 mmol/L (10-20); BUN (Urea Nitrogen) 11 mg/dL (8.4-25.7); Calc. Creatinine Clearance 102 mL/min (70-130); Calcium 7.3 mg/dL (7.8-10.44); Carbon Dioxide 21 mmol/L (23-31); Chloride 110 mmol/L (98-107); Estimated GFR-MDRD 75; Glucose 101 mg/dL (80-115); Potassium 4.1 mmol/L (3.5-5.1); Sodium 142 mmol/L (136-145)
[2019-11-22] MEDS: D5 1/2 NS w/20 mEq KCL 1,000 ML IV SCH (22:20)
[2019-11-22] MEDS: Ketorolac Tromethamine 30 MG/ML VIAL IVP SCH (23:51)
[2019-11-23] MEDS: CEFAZOLIN 2 GM in Premix Bag 1 BAG IVPB SCH ×3 (00:40→17:14)
[2019-11-23] MEDS ORDERED: Acetaminophen 650 MG Suppository PR PRN ×2 (01:02→01:15)
--- NOTE | 2019-11-23 02:17 | OP ---
DATE OF PROCEDURE: 11/22/2019 PREOPERATIVE DIAGNOSES: Coronary artery disease/hypertension/dyslipidemia/diabetes mellitus/status post bilateral greater saphenous vein ablation. POSTOPERATIVE DIAGNOSES: Coronary artery disease/hypertension/dyslipidemia/diabetes mellitus/status post bilateral greater saphenous vein ablation. PROCEDURES PERFORMED: 1. Coronary artery bypass grafting x2. a. Left internal mammary artery to 1.25 mm distal LAD-good conduit small target. b. Left radial artery to 1.5 mm PDA-good conduit in small target. Note, both legs were evaluated with ultrasound and there was no patent usable greater saphenous or lesser saphenous vein. The right internal mammary artery was explored and harvested and was inadequate to use for bypass. MOTORBOAT MECHANIC HELPER: Enrrique Spears MD ANESTHESIA: General endotracheal-Dr. Jorge A Anand. PUMP TIME: 64 minutes. CROSSCLAMP TIME: 32 minutes. LOW CORE TEMPERATURE: 34 degrees Celsius. BORING MILL SET UP OPERATOR VERTICAL: Laure Christie. DRAINS: 24-Burmese chest tubes x3. DRIPS: Levophed at 6 mcg. TRANSFUSIONS: None. DESCRIPTION OF PROCEDURE: After consent was obtained, the patient was brought to the operating room and placed in supine position on the operating room table. Appropriate central line and monitors were placed and general endotracheal anesthesia was induced. Chest, abdomen, and legs were prepped and draped in usual sterile fashion. The left radial artery was harvested as a pedicle graft from the brachial bifurcation down to the wrist. Wounds were closed in layers and Dermabond applied to the skin. A median sternotomy was performed. The right internal mammary artery was harvested and was inadequate lengths of usable mammary to use, therefore, it was ligated. Left internal mammary artery was harvested as a pedicle graft. The patient was systemically heparinized. Distal pedicle was divided and infused with papaverine. Thymic fat and pericardium were divided with electrocautery. Pericardial stay sutures were placed. Pericardium and epicardium were fused. This was sharply and bluntly taken down. Aortic and atrial cannulation was performed. After adequate heparinization, retrograde prime was performed. The patient was placed on cardiopulmonary bypass. Distal targets were marked. Aortic cross-clamp was applied and an antegrade sanguineous cardioplegic arrest was obtained. 1 L of antegrade cold [place] cardioplegia was given. Topical cold solution was used. Left radial artery was anastomosed to PDA in end-to-side fashion with running 7-0 Prolene suture. The pedicle was secured with interrupted 6-0 Prolene suture. Anastomosis was inspected for hemostasis, which was good. The mammary artery was brought through a window in the pericardium and anastomosed to the LAD in end-to-side fashion with running 7-0 Prolene suture. On release of mammary clamps, good hooding anastomosis and good distal flow. Pedicle was secured with interrupted 6-0 Prolene suture. Cross-clamp was removed and partial occluding clamp placed. Radial artery was anastomosed to punch site in the aorta with running 7-0 Prolene suture. Mammary veins were clipped. Partial occluding clamp was removed and distal anastomoses inspected for hemostasis, which was good. The patient was warmed and weaned from cardiopulmonary bypass. After resumption of sinus rhythm, good hemodynamics, temperature greater than 36.5, bypass was discontinued. Transfusion was given. 24-Burmese chest tubes x3 were placed in mediastinum. Sternum was treated with vancomycin paste. After adequate hemostasis had been obtained, sternum was closed with #7 wire. Sternum was treated with platelet rich plasma and wires were twisted and buried. Wounds were irrigated, treated with platelet poor plasma, closed in multiple layers. Needle, sponge, and instrument counts were all reported as correct at the end of the procedure. The patient tolerated the procedure well, transferred to the intensive care unit in stable, but critical condition. Job ID: [id number]
[2019-11-23] MEDS: Insulin Regular 300 UNITS/3 ML VIAL SC PRN ×2 (02:43→04:53)
[2019-11-23 04:53] LABS: #Eosinphils 0.1 thou/uL (0.0-0.7); #Lymphocytes 0.9 thou/uL (1.20-3.40); #Monocytes 0.9 thou/uL (0.11-0.59); %Basophils 0.1 % (0.0-1.0); %Eosinophils 0.5 % (0.0-10.0); %Lymphocytes 6.3 % (21.0-51.0); %Monocytes 6.3 % (0.0-10.0); %Neutrophils 86.9 % (42.0-75.0); Mean Corpuscular HGB CONC 33.4 g/dL (32.0-36.0); Mean Corpuscular Hemoglobin 29.8 pg (27.0-31.0); Mean Corpuscular Volume 89.2 fL (78.0-98.0); Mean Platelet Volume 6.8 fL (7.4-10.4); Platelet Count 236 thou/uL (130-400); RBC Distribution Width 12.3 % (11.5-14.5); Red Blood Cell (RBC) Count 4.37 mill/uL (4.70-6.10); White Blood Cell (WBC) Count 13.9 thou/uL (4.8-10.8)
[2019-11-23 05:17] LABS: Anion Gap 13 mmol/L (10-20); BUN (Urea Nitrogen) 13 mg/dL (8.4-25.7); Calc. Creatinine Clearance 98 mL/min (70-130); Calcium 7.8 mg/dL (7.8-10.44); Carbon Dioxide 24 mmol/L (23-31); Chloride 106 mmol/L (98-107); Estimated GFR-MDRD 71; Glucose 168 mg/dL (80-115); Potassium 4.3 mmol/L (3.5-5.1); Sodium 139 mmol/L (136-145)
[2019-11-23 05:58] LABS: Actual Bicarbonate (HCO3a) 24.6 mEq/L (22-28); Base Excess (BEa) -1.2 mEq/L (-2.0 to +3.0); CO2 Tension 45.3 mmHg (35.0-45.0); Calcium, Ionized 1.08 mmol/L (1.12-1.30); Hemoglobin (Hb) 13.1 g/dL (14.0-18.0); O2 Tension (PaO2) 124.7 mmHg (> 80.0); Potassium - ABG Lab 4.14 mmol/L (3.70-5.30); pH, Arterial 7.35 (7.35-7.45)
[2019-11-23 06:00] LABS: Puncture Site ALINE
[2019-11-23 06:01] LABS: ALV-art Gradient 103.875 (0-20)
[2019-11-23] MEDS ORDERED: Dextrose 5% in Water 1,000 ML IV PRN (06:54)
[2019-11-23] MEDS ORDERED: Dextrose 50% Abboject 50 ML SYRINGE SLOW IVP PRN (06:54)
[2019-11-23] MEDS: Ketorolac Tromethamine 30 MG/ML VIAL IVP SCH ×3 (07:35→17:15)
--- NOTE | 2019-11-23 07:46 | RAD ---
EXAM: Portable chest PROVIDED CLINICAL HISTORY: Respiratory insufficiency COMPARISON: None FINDINGS: Significant interval change with respect to the prior examination is not apparent. IMPRESSION: As above.
[2019-11-23] MEDS: Aspirin 325 MG TAB PO SCH (09:21)
[2019-11-23] MEDS: Magnesium 2 GM/50 ML 2 GM in Premix Bag 1 BAG IVPB SCH (09:21)
[2019-11-23] MEDS: Tamsulosin HCl 0.4 MG CAP PO SCH (09:22)
[2019-11-23] MEDS: Famotidine/PF 20 mg/2ml Vial SLOW IVP SCH ×2 (09:22→20:06)
[2019-11-23] MEDS: HumaLOG 300 UNITS/3 ML VIAL SC PRN ×2 (10:33→21:12)
[2019-11-23] MEDS: Fentanyl 100 MCG/2 ML VIAL SLOW IVP PRN ×2 (11:46→20:01)
[2019-11-23] MEDS: traMADol HCl 50 MG TAB PO PRN ×2 (11:47→17:15)
--- NOTE | 2019-11-23 15:47 | PDOC.HOSPP ---
- Subjective Encounter Date: 11/23/19 Encounter Time: 11:00 non-verbal Subjective: The patient is s/p CABG POD1. He has no complaints other than mild chest soreness. His left arm pain has resolved. He initially presented with severe left arm pain and jaw pain. His A-line was removed from left groin today. Currently on oxygen. - Objective Vital Signs & Weight: Vital Signs (12 hours) Temp Pulse BP Pulse Ox 11/23/19 11:05 100 11/23/19 04:00 99.7 F H 11/23/19 03:50 56 L 138/65 Weight Weight 196 lb 1.6 oz Most Recent Monitor Data Heart Rate from ECG 66 NIBP 127/76 NIBP BP-Mean 93 Respiration from ECG 21 SpO2 96 I&O: 11/22/19 11/23/19 11/24/19 06:59 06:59 06:59 Intake Total 358.6 250 Output Total 1060 495 Balance -701.4 -245 Result Diagrams: 11/23/19 04:30 11/23/19 04:30 Additional Labs: Accuchecks 11/23/19 11/23/19 11/23/19 10:32 04:37 02:18 POC Glucose 170 H 174 H 157 H 11/22/19 11/22/19 11/22/19 21:35 21:12 19:58 POC Glucose 109 111 H 110 11/22/19 11/22/19 19:03 17:39 POC Glucose 110 100 Hospitalist ROS - Review of Systems Constitutional: denies: fever, chills - Medication Medications: Active Medications Generic Name Dose Route Start Last Admin Trade Name Keshawnq PRN Reason Stop Dose Admin Acetaminophen 650 mg 11/23/19 01:15 11/23/19 01:30 Tylenol OK 650 mg Q6H PRN Administration Headache/Fever or Pain Albumin Human 12.5 gm 11/22/19 21:43 11/23/19 07:48 Albumin 5% IVPB 11/23/19 21:44 12.5 gm Q6H PRN Administration To Maintain SBP> 90 mmHG Aspirin 325 mg 11/23/19 09:00 11/23/19 09:21 Aspirin PO 325 mg DAILY SEEMA Administration Famotidine 20 mg 11/23/19 09:00 11/23/19 09:22 Pepcid SLOW IVP 20 mg Q12HR SEEMA Administration Fentanyl 25 mcg 11/22/19 21:43 11/23/19 11:46 Sublimaze SLOW IVP 11/24/19 21:14 25 mcg Q2H PRN Administration Moderate Pain (4-6) Cefazolin Sodium/Dextrose 2 gm 50 mls @ 100 mls/hr 11/23/19 01:00 11/23/19 09 :20 / Device IVPB 11/23/19 17:29 50 mls 0100,0900,1700 SEEMA Administration Potassium Chloride/Dextrose/Sod Cl 1,000 mls @ 40 mls/hr 11/22/19 21:43 11/22 22:20 D5 1/2 Ns W/20 Meq Kcl IV 1,000 mls .Q24H SEEMA Administration Magnesium Sulfate 2 gm/ Device 50 mls @ 50 mls/hr 11/23/19 09:00 11/23/19 09: 21 IVPB 11/24/19 09:59 50 mls QAM SEEMA Administration Insulin Human Lispro 0 units 11/23/19 06:54 11/23/19 10:33 Humalog SC 2 unit .MILD SLIDING SCALE PRN Administration Mild Correctional Scale Ketorolac Tromethamine 30 mg 11/22/19 23:59 11/23/19 11:38 Toradol IVP 11/25/19 23:59 30 mg Q6HR SEEMA Administration Tamsulosin HCl 0.4 mg 11/22/19 09:00 11/23/19 09:22 Flomax PO 0.4 mg QAM SEEMA Administration Tramadol HCl 50 mg 11/22/19 21:43 11/23/19 11:47 Ultram PO 50 mg Q6H PRN Administration Pain - Exam General Appearance: NAD, awake alert Eye: PERRL, anicteric sclera ENT: normocephalic atraumatic, no oropharyngeal lesions Neck: supple, symmetric, no JVD, no thyromegaly Heart: RRR, no murmur, no gallops, no rubs Heart - other findings: chest tube in place Respiratory: CTAB, no wheezes, no rales, no ronchi Gastrointestinal: soft, non-tender, non-distended, normal bowel sounds Gastrointestinal - other findings: burnette with 300 cc Extremities: no cyanosis, no clubbing, no edema Hosp A/P - Plan CTA: multiple small bilateral parenchymal lung nodules. Atherosclerosis. Cardiac cath: LAD 75-80% lesions, ostial circumflex 75%, RCA mid 99%. EF 60-65% . Abdominal ultrasound: fatty liver This is 69 year old male with HTN, HLD, aneurysm of aorta who presented with left arm pain. Had cath which showed 3 vessel disease, s/p CABG 11/23. NSTEMI s/p CABG - continue heparin drip, nitro - repeat one troponin - chest tube management per surgery - burnette in place. Remove when ambulatory - PTOT when okay by surgery Leukocytosis - WBC 13.9, likely stress from surgery. Will monitor. On IV cefazolin Anemia - Hb 13 Fatty liver - noted on abdominal ultrasound DVT prophylaxis: heparin drip Code status: full code
--- NOTE | 2019-11-23 16:15 | CON ---
DATE OF CONSULTATION: 11/23/2019 HISTORY OF PRESENT ILLNESS: Mr. Suárez is a 69-year-old male, who underwent coronary artery bypass surgery last night urgently. He has been extubated. He is in no distress. I was consulted because of his presence in critical care unit. PAST MEDICAL HISTORY: Remarkable for: 1. Diabetes. 2. History of lipid disorder. 3. History of hypertension. 4. History of herniorrhaphy in the past. 5. History of an aortic aneurysm. 6. History of tonsillectomy. SOCIAL HISTORY: He is a former smoker, former marijuana user, and former methamphetamine user. He is not a daily drinker. FAMILY HISTORY: Negative for lung disease in early age. REVIEW OF SYSTEMS: Ten points are otherwise negative. His only complaint is mild chest discomfort. PHYSICAL EXAMINATION: GENERAL: Mr. Suárez is a 69-year-old male, who underwent coronary artery bypass surgery last night urgently. VITAL SIGNS: Heart rates in the 60s, blood pressure 127/76, respiratory rates 18 to 20. HEAD AND NECK: Unremarkable. LUNGS: Clear. HEART: Regular rhythm. S1 and S2 are normal. ABDOMEN: Soft and nontender. EXTREMITIES: Without clubbing, cyanosis, or edema. LABORATORY DATA: White count 13.9, hemoglobin 13.0, platelets 236. Sodium 139, potassium 4.3, chloride 106, bicarb 24, BUN 13, creatinine 1.04. Chest x-ray shows no new infiltrates compared to the postoperative film. IMPRESSION: Status post urgent/emergent coronary artery bypass grafting, clinically stable. We will follow the other physicians caring for this patient. Probably stable to move out of the Critical Care Unit tomorrow, I would hope. This is a 70 minute consult, with greater than 50% of time spent on unit coordinating care. Job ID: [id number] [facility]
--- NOTE | 2019-11-23 16:30 | PDOC.CPN ---
- Subjective Date: 11/23/19 Time: 15:00 - Review of Systems General: reports: fever/chills Respiratory: reports: shortness of breath Cardiovascular: reports: chest pain, palpitation Gastrointestinal: reports: nausea, vomiting Musculoskeletal: reports: pain (he does complain of stiffness and tenderness in the left arm after radial graft retrieval.) - Objective Allergies/Adverse Reactions: Allergies Allergy/AdvReac Type Severity Reaction Status Date / Time No Known Drug Allergies Allergy Verified 11/21/19 22:49 Visit Medications: Current Medications Acetaminophen (Tylenol) 650 mg PO Q6H PRN PRN Reason: Headache/Fever Or Mild Pain Acetaminophen (Tylenol) 650 mg OR Q6H PRN PRN Reason: Headache/Fever or Pain Last Admin: 11/23/19 01:30 Dose: 650 mg Al Hydroxide/Mg Hydroxide (Maalox) 30 ml PO Q4H PRN PRN Reason: Indigestion Albumin Human (Albumin 5%) 12.5 gm IVPB Q6H PRN PRN Reason: To Maintain SBP> 90 mmHG Stop: 11/23/19 21:44 Last Admin: 11/23/19 07:48 Dose: 12.5 gm Albumin Human (Albumin 5%) 25 gm IVPB Q6H PRN PRN Reason: To Maintain SBP > 90 mmHG Stop: 11/23/19 21:44 Albuterol/Ipratropium (Duoneb) 3 ml NEB [id number] PRN PRN Reason: SHORTNESS OF BREATH Aspirin (Aspirin) 325 mg PO DAILY [facility] Last Admin: 11/23/19 09:21 Dose: 325 mg Bisacodyl (Dulcolax) 10 mg PO Q12H PRN PRN Reason: Constipation Bisacodyl (Dulcolax) 10 mg OR Q12H PRN PRN Reason: Constipation Dextrose/Water (Dextrose 50%) 25 gm SLOW IVP PRN PRN PRN Reason: Hypoglycemia Famotidine (Pepcid) 20 mg SLOW IVP Q12HR [facility] Last Admin: 11/23/19 09:22 Dose: 20 mg Fentanyl (Sublimaze) 25 mcg SLOW IVP Q2H PRN PRN Reason: Moderate Pain (4-6) Stop: 11/24/19 21:14 Last Admin: 11/23/19 11:46 Dose: 25 mcg Fentanyl (Sublimaze) 50 mcg SLOW IVP Q2H PRN PRN Reason: Severe Pain (7-10) Stop: 11/24/19 21:14 Glucagon (Glucagon) 1 mg IM PRN PRN PRN Reason: Hypoglycemia Guaifenesin/Dextromethorphan (Robitussin Dm) 15 ml PO Q4H PRN PRN Reason: Cough Hydralazine HCl (Apresoline) 10 mg SLOW IVP Q6H PRN PRN Reason: To Maintain SBP< 140mmHG Cefazolin Sodium/Dextrose 2 gm (/ Device) 50 mls @ 100 mls/hr IVPB 0100,0900, 1700 [facility] Stop: 11/23/19 17:29 Last Admin: 11/23/19 09:20 Dose: 50 mls Potassium Chloride/Dextrose/Sod Cl (D5 1/2 Ns W/20 Meq Kcl) 1,000 mls @ 40 mls/ hr IV .Q24H [facility] Last Admin: 11/22/19 22:20 Dose: 1,000 mls Hetastarch/Sodium Chloride (Hespan) 500 mls @ 0 mls/hr IVPB PRN PRN PRN Reason: To Maintain SBP > 90mmHg Stop: 11/23/19 21:14 Norepinephrine Bitartrate (Levophed) 250 mls @ 0 mls/hr IVPB PRN PRN; Protocol PRN Reason: To maintain SBP > 90 mmHG Magnesium Sulfate 2 gm/ Device 50 mls @ 50 mls/hr IVPB QAM [facility] Stop: 11/24/19 09:59 Last Admin: 11/23/19 09:21 Dose: 50 mls Dextrose/Water (D5w) 1,000 mls @ 0 mls/hr IV .Q0M PRN PRN Reason: Hypoglycemia Insulin Human Lispro (Humalog) 0 units SC .MILD SLIDING SCALE PRN PRN Reason: Mild Correctional Scale Last Admin: 11/23/19 10:33 Dose: 2 unit Ketorolac Tromethamine (Toradol) 30 mg IVP Q6HR [facility] Stop: 11/25/19 23:59 Last Admin: 11/23/19 11:38 Dose: 30 mg Morphine Sulfate (Morphine) 2 mg SLOW IVP Q15MIN PRN PRN Reason: Severe Pain (7-10) Ondansetron HCl (Zofran) 4 mg IVP Q6H PRN PRN Reason: Nausea/Vomiting Potassium Chloride (Kcl) 20 meq IVPB PRN PRN PRN Reason: K level </= 4.0 Promethazine HCl (Phenergan) 6.25 mg IM Q4H PRN PRN Reason: Nausea/Vomiting Simvastatin (Zocor) 40 mg PO QPM [facility] Sodium Chloride (Flush - Normal Saline) 10 ml IVF PRN PRN PRN Reason: Saline Flush Tamsulosin HCl (Flomax) 0.4 mg PO QAM SE[facility] Last Admin: 11/23/19 09:22 Dose: 0.4 mg Tramadol HCl (Ultram) 50 mg PO Q6H PRN PRN Reason: Pain Last Admin: 11/23/19 11:47 Dose: 50 mg Vital Signs & Weight: Vital Signs Pulse Ox 11/23/19 11:05 100 Weight 196 lb 1.6 oz - Quality Measures CV meds: Beta Louisa: No (will start today if BP stable.), PB/ARB: Yes, Statin : Yes - Physical Exam HEENT: normocephaly Neck: supple neck, no masses Cardiac: regular rate and rhythm Lungs: clear to auscultation, no wheeze, rales, rhonchi Neuro: grossly intact Abdomen: unremarkable Extremities: other: (mild edema post CABG) Musculoskeletal: normal range of motion, other (except left arm tenderness after radial graft retrieval.) - Labs Result Diagrams: 11/23/19 04:30 11/23/19 04:30 Troponin/CKMB CK-MB (CK-2) 1.4 ng/mL (0-6.6) 11/21/19 20:04 Troponin I 0.145 ng/mL (< 0.028) H 11/22/19 16:45 - EKG Interpretation EKG: sinus rhythm - Assessment/Plan Assessment/Plan: 1.CAD. S/P CABG. CURTIS to LAD. , Radial to the RCA. Unable to bypass the L-circ. due to unavailable vein graft material. 2. DM: reasonable control. On sliding scale. 3. HTN: well controlled at this time. Initiate coreg. 4. dyslipidemia: continue statins
[2019-11-23 16:56] LABS: CKMB 68.8 ng/mL (0-6.6)
[2019-11-23] MEDS: Carvedilol 3.125 MG TAB PO SCH (17:15)
[2019-11-23] MEDS: Simvastatin 40 MG TAB PO SCH (20:03)
[2019-11-23] MEDS: D5 1/2 NS w/20 mEq KCL 1,000 ML IV SCH (22:19)
[2019-11-24] MEDS: Ketorolac Tromethamine 30 MG/ML VIAL IVP SCH ×4 (01:04→16:52)
[2019-11-24 04:26] LABS: #Basophils 0.1 thou/uL (0.0-0.2); #Eosinphils 0.1 thou/uL (0.0-0.7); #Lymphocytes 1.5 thou/uL (1.20-3.40); #Neutrophils 8.7 thou/uL (1.40-6.50); %Basophils 0.5 % (0.0-1.0); %Eosinophils 1.1 % (0.0-10.0); %Monocytes 9.1 % (0.0-10.0); %Neutrophils 76.3 % (42.0-75.0); Hemoglobin 11.2 g/dL (14.0-18.0); Mean Corpuscular HGB CONC 32.2 g/dL (32.0-36.0); Mean Corpuscular Hemoglobin 28.9 pg (27.0-31.0); Mean Corpuscular Volume 89.5 fL (78.0-98.0); Mean Platelet Volume 6.8 fL (7.4-10.4); Platelet Count 175 thou/uL (130-400); RBC Distribution Width 12.4 % (11.5-14.5); Red Blood Cell (RBC) Count 3.89 mill/uL (4.70-6.10); White Blood Cell (WBC) Count 11.4 thou/uL (4.8-10.8)
[2019-11-24 04:48] LABS: Anion Gap 9 mmol/L (10-20); BUN (Urea Nitrogen) 13 mg/dL (8.4-25.7); Calc. Creatinine Clearance 113 mL/min (70-130); Calcium 7.9 mg/dL (7.8-10.44); Carbon Dioxide 30 mmol/L (23-31); Chloride 101 mmol/L (98-107); Estimated GFR-MDRD Greater than 90; Glucose 116 mg/dL (80-115); Potassium 3.8 mmol/L (3.5-5.1); Sodium 136 mmol/L (136-145)
[2019-11-24] MEDS: traMADol HCl 50 MG TAB PO PRN ×2 (07:58→13:26)
[2019-11-24] MEDS: Magnesium 2 GM/50 ML 2 GM in Premix Bag 1 BAG IVPB SCH (08:16)
--- NOTE | 2019-11-24 08:32 | RAD ---
EXAM: Portable chest PROVIDED CLINICAL HISTORY: Post open heart COMPARISON: 11/23/2019 FINDINGS: Interval extubation. Additional significant interval change with respect to the prior examination is not apparent. IMPRESSION: As above.
[2019-11-24] MEDS: Carvedilol 3.125 MG TAB PO SCH ×2 (09:09→16:43)
[2019-11-24] MEDS: Tamsulosin HCl 0.4 MG CAP PO SCH (09:19)
[2019-11-24] MEDS: Famotidine/PF 20 mg/2ml Vial SLOW IVP SCH (09:19)
[2019-11-24] MEDS: Aspirin 325 MG TAB PO SCH (09:19)
[2019-11-24] MEDS: Potassium Chloride 10 MEQ TAB PO SCH (11:04)
[2019-11-24] MEDS: Furosemide 40 MG TAB PO SCH (11:06)
[2019-11-24] MEDS: HumaLOG 300 UNITS/3 ML VIAL SC PRN (11:07)
--- NOTE | 2019-11-24 15:10 | PDOC.HOSPP ---
- Subjective Encounter Date: 11/24/19 Encounter Time: 15:09 Subjective: F/u CABG He is doing better, mild chest soreness still. He got tired of sitting up so is laying down now. Still has burnette and chest tube. Per nursing he had urinary retention during his last hospitalization after surgery The patient says he is constipated and hasn't had a BM since admission. He has not been given laxative as of yet. He says he feels some fullness in his RLQ. - Objective Vital Signs & Weight: Vital Signs (12 hours) Temp Pulse Ox 11/24/19 11:00 98.2 F 11/24/19 08:00 94 L 11/24/19 07:00 98.0 F 11/24/19 04:00 98.7 F Weight Weight 197 lb 14.4 oz Most Recent Monitor Data Heart Rate from ECG 71 NIBP 142/71 NIBP BP-Mean 94 Respiration from ECG 20 SpO2 97 I&O: 11/23/19 11/24/19 11/25/19 06:59 06:59 06:59 Intake Total 358.6 850 570 Output Total 1060 1560 1150 Balance -701.4 -710 -580 Result Diagrams: 11/24/19 04:10 11/24/19 04:10 Additional Labs: Accuchecks 11/24/19 11/24/19 11/23/19 07:51 04:12 21:13 POC Glucose 131 H 121 H 174 H 11/23/19 11/23/19 17:17 10:32 POC Glucose 130 H 170 H Hospitalist ROS - Review of Systems Constitutional: denies: fever, chills Cardiovascular: denies: chest pain, palpitations - Medication Medications: Active Medications Generic Name Dose Route Start Last Admin Trade Name Freq PRN Reason Stop Dose Admin Acetaminophen 650 mg 11/23/19 01:15 11/23/19 01:30 Tylenol NC 650 mg Q6H PRN Administration Headache/Fever or Pain Al Hydroxide/Mg Hydroxide 30 ml 11/22/19 21:43 11/24/19 08:16 Maalox PO 30 ml Q4H PRN Administration Indigestion Bisacodyl 10 mg 11/22/19 21:43 11/24/19 09:44 Dulcolax PO 10 mg Q12H PRN Administration Constipation Carvedilol 3.125 mg 11/23/19 17:00 11/24/19 09:09 Coreg PO Not Given BID-WM SEEAM Fentanyl 25 mcg 11/22/19 21:43 11/23/19 20:01 Sublimaze SLOW IVP 11/24/19 21:14 25 mcg Q2H PRN Administration Moderate Pain (4-6) Furosemide 40 mg 11/24/19 07:30 11/24/19 11:06 Lasix PO 40 mg DAILY-AC SEEMA Administration Insulin Human Lispro 0 units 11/23/19 06:54 11/24/19 11:07 Humalog SC 2 unit .MILD SLIDING SCALE PRN Administration Mild Correctional Scale Ketorolac Tromethamine 30 mg 11/22/19 23:59 11/24/19 11:05 Toradol IVP 11/25/19 23:59 30 mg Q6HR SEEMA Administration Potassium Chloride 20 meq 11/22/19 21:43 11/24/19 07:54 Kcl IVPB 20 meq PRN PRN Administration K level </= 4.0 Potassium Chloride 10 meq 11/24/19 08:00 11/24/19 11:04 Klor-Con 10 PO 10 meq QAM-WM SEEMA Administration Simvastatin 40 mg 11/23/19 21:00 11/23/19 20:03 Zocor PO 40 mg QPM SEEMA Administration Tamsulosin HCl 0.4 mg 11/22/19 09:00 11/24/19 09:19 Flomax PO 0.4 mg QAM SEEMA Administration Tramadol HCl 50 mg 11/22/19 21:43 11/24/19 13:26 Ultram PO 50 mg Q6H PRN Administration Pain - Exam General Appearance: NAD, awake alert Eye: PERRL, anicteric sclera ENT: normocephalic atraumatic, no oropharyngeal lesions Neck: supple, symmetric, no JVD, no carotid bruit Heart: RRR, no murmur, no gallops, no rubs Respiratory: CTAB, no wheezes, no rales, no ronchi Gastrointestinal: soft, non-tender Gastrointestinal - other findings: mildly distended, firm to palpation in RLQ Extremities: no edema Hosp A/P - Plan CTA: multiple small bilateral parenchymal lung nodules. Atherosclerosis. Cardiac cath: LAD 75-80% lesions, ostial circumflex 75%, RCA mid 99%. EF 60-65% . Abdominal ultrasound: fatty liver This is 69 year old male with HTN, HLD, aneurysm of aorta who presented with left arm pain. Had cath which showed 3 vessel disease, s/p CABG 11/23. NSTEMI s/p CABG - on aspirin, plavix, coreg, lasix - chest tube management per surgery - burnette in place. Remove when ambulatory - PTOT when okay by surgery Leukocytosis - WBC down to 11.4, likely stress from surgery. Will monitor. On IV cefazolin Anemia - Hb 13, continue to monitor. B12 and folate are normal Fatty liver - noted on abdominal ultrasound DVT prophylaxis: heparin SC Code status: full code
[2019-11-24] MEDS: Acetaminophen 325 MG TAB PO PRN (16:43)
[2019-11-24] MEDS ORDERED: Heparin 5,000 UNITS/ML VIAL SC SCH (21:00)
[2019-11-24] MEDS: Simvastatin 40 MG TAB PO SCH (21:03)
[2019-11-25] MEDS: Ketorolac Tromethamine 30 MG/ML VIAL IVP SCH ×4 (00:24→17:15)
[2019-11-25 04:12] VITALS: BMI 30.8
[2019-11-25 06:11] LABS: Anion Gap 8 mmol/L (10-20); BUN (Urea Nitrogen) 14 mg/dL (8.4-25.7); Calc. Creatinine Clearance 131 mL/min (70-130); Calcium 8.4 mg/dL (7.8-10.44); Carbon Dioxide 32 mmol/L (23-31); Chloride 99 mmol/L (98-107); Estimated GFR-MDRD Greater than 90; Glucose 102 mg/dL (80-115); Potassium 3.8 mmol/L (3.5-5.1); Sodium 135 mmol/L (136-145)
[2019-11-25] MEDS ORDERED: Magnesium Citrate 300 ML BOT PO SCH (07:45)
--- NOTE | 2019-11-25 07:54 | PDOC.CPN ---
- Subjective Date: 11/25/19 Time: 07:56 Interval history: The pt seen and examined. No overnight events. No cardiac complaints. The patient says he is constipated and hasn't had a BM since admission. - Objective Allergies/Adverse Reactions: Allergies Allergy/AdvReac Type Severity Reaction Status Date / Time No Known Drug Allergies Allergy Verified 11/21/19 22:49 Visit Medications: Current Medications Acetaminophen (Tylenol) 650 mg PO Q6H PRN PRN Reason: Headache/Fever Or Mild Pain Last Admin: 11/24/19 16:43 Dose: 650 mg Acetaminophen (Tylenol) 650 mg [place] Q6H PRN PRN Reason: Headache/Fever or Pain Last Admin: 11/23/19 01:30 Dose: 650 mg Al Hydroxide/Mg Hydroxide (Maalox) 30 ml PO Q4H PRN PRN Reason: Indigestion Last Admin: 11/24/19 08:16 Dose: 30 ml Albuterol/Ipratropium (Duoneb) 3 ml NEB [id number] PRN PRN Reason: SHORTNESS OF BREATH Aspirin (Aspirin Chewable) 81 mg PO DAILY [facility] Bisacodyl (Dulcolax) 10 mg PO Q12H PRN PRN Reason: Constipation Last Admin: 11/24/19 09:44 Dose: 10 mg Bisacodyl (Dulcolax) 10 mg [place] Q12H PRN PRN Reason: Constipation Carvedilol (Coreg) 3.125 mg PO BID-[facility] Last Admin: 11/24/19 16:43 Dose: 3.125 mg Clopidogrel Bisulfate (Plavix) 75 mg PO DAILY [facility] Dextrose/Water (Dextrose 50%) 25 gm SLOW IVP PRN PRN PRN Reason: Hypoglycemia Furosemide (Lasix) 40 mg PO DAILY-[facility] Last Admin: 11/24/19 11:06 Dose: 40 mg Glucagon (Glucagon) 1 mg IM PRN PRN PRN Reason: Hypoglycemia Guaifenesin/Dextromethorphan (Robitussin Dm) 15 ml PO Q4H PRN PRN Reason: Cough Hydralazine HCl (Apresoline) 10 mg SLOW IVP Q6H PRN PRN Reason: To Maintain SBP< 140mmHG Dextrose/Water (D5w) 1,000 mls @ 0 mls/hr IV .Q0M PRN PRN Reason: Hypoglycemia Insulin Human Lispro (Humalog) 0 units SC .MILD SLIDING SCALE PRN PRN Reason: Mild Correctional Scale Last Admin: 11/24/19 11:07 Dose: 2 unit Ketorolac Tromethamine (Toradol) 30 mg IVP Q6HR [facility] Stop: 11/25/19 23:59 Last Admin: 11/25/19 05:15 Dose: 30 mg Magnesium Citrate (Citrate Of Magnesia 300 Ml Bot) 300 ml PO NOW [facility] Stop: 11/25/19 09:45 Ondansetron HCl (Zofran) 4 mg IVP Q6H PRN PRN Reason: Nausea/Vomiting Pantoprazole Sodium (Protonix) 40 mg PO DAILY [facility] Potassium Chloride (Kcl) 20 meq IVPB PRN PRN PRN Reason: K level </= 4.0 Last Admin: 11/24/19 07:54 Dose: 20 meq Potassium Chloride (Klor-Con 10) 10 meq PO QAM-WM [facility] Last Admin: 11/24/19 11:04 Dose: 10 meq Simvastatin (Zocor) 40 mg PO QPM [facility] Last Admin: 11/24/19 21:03 Dose: 40 mg Sodium Chloride (Flush - Normal Saline) 10 ml IVF PRN PRN PRN Reason: Saline Flush Tamsulosin HCl (Flomax) 0.4 mg PO QAM [facility] Last Admin: 11/24/19 09:19 Dose: 0.4 mg Tramadol HCl (Ultram) 50 mg PO Q6H PRN PRN Reason: Pain Last Admin: 11/24/19 13:26 Dose: 50 mg Vital Signs & Weight: Vital Signs Temp Pulse Ox 11/25/19 04:00 98.5 F 11/25/19 00:00 98.6 F 11/24/19 20:00 97 Weight 220 lb 0.341 oz - Quality Measures CV meds: Beta Louisa: No (will start today if BP stable.), PB/ARB: Yes, Statin : Yes - Physical Exam General: alert & oriented x3 HEENT: mucus membranes moist Neck: supple neck Cardiac: regular rate and rhythm, S1/S2 Lungs: clear to auscultation Neuro: cranial nerve 2-12 intact Extremities: other: (mild swelling to RUE) - Labs Result Diagrams: 11/26/19 06:30 01/21/20 06:30 Troponin/CKMB CK-MB (CK-2) 68.8 ng/mL (0-6.6) H* 11/23/19 15:59 Troponin I 15.914 ng/mL (< 0.028) H* 11/23/19 15:59 - Telemetry Sinus rhythms and dysrhythmias: sinus rhythm - Assessment/Plan Assessment/Plan: 1. CAD with S/P CABG on 11/22/2019 with CURTIS to LAD, Radial to the RCA, unable to bypass the L-circ. due to unavailable vein graft material - stable; on Coreg , ASA, and Statin 2. DM: reasonable control. On sliding scale. 3. HTN: well controlled at this time. 4. dyslipidemia: continue statins 5. Fatty Liver MAR reviewed Pt. seen and eval. by me. I agree with the A/P by the FOOT GATHERER. Chest clear. RRR. no edema.
[2019-11-25] MEDS: Carvedilol 3.125 MG TAB PO SCH ×2 (07:58→17:15)
[2019-11-25] MEDS: Furosemide 40 MG TAB PO SCH (07:58)
[2019-11-25] MEDS: Potassium Chloride 10 MEQ TAB PO SCH (07:58)
[2019-11-25] MEDS: Tamsulosin HCl 0.4 MG CAP PO SCH (08:45)
[2019-11-25] MEDS: Clopidogrel Bisulfate 75 MG TAB PO SCH (08:45)
[2019-11-25] MEDS: Aspirin Chewable 81 MG TAB PO SCH (08:45)
--- NOTE | 2019-11-25 08:55 | RAD ---
FRONTAL RADIOGRAPH CHEST: DATE: 11/25/2019. COMPARISON: 11/24/2019. HISTORY: Evaluate chest following open heart surgery. FINDINGS: There is a stable right vascular catheter. Stable midline sternotomy wires. Heart and mediastinal c ontours are unchanged. Drainage catheters present on the prior examination have been removed. No fo emerald consolidation or alveolar edema. Mild linear density in the medial left base, improved since th e prior imaging. IMPRESSION: Postoperative changes as described above. No lobar consolidation or alveolar edema. POS: SEGUN
[2019-11-25] MEDS ORDERED: Nitroglycerin 0.4 MG TAB (25 Tab Bottle) SL PRN (09:12)
[2019-11-25] MEDS ORDERED: Bisacodyl 5 MG TAB PO PRN (09:12)
[2019-11-25] MEDS ORDERED: Guaifenesin DM 100-10/5 ML UDCUP PO PRN (09:12)
[2019-11-25] MEDS ORDERED: diphenhydrAMINE 25 MG CAP PO PRN (09:12)
[2019-11-25] MEDS ORDERED: Milk Of Magnesia 30 ML UDCUP PO PRN (09:12)
[2019-11-25] MEDS ORDERED: Bisacodyl 10 MG SUPP PR PRN (09:12)
[2019-11-25] MEDS ORDERED: Mag-Al 1200 mg/1200 mg/30 ML UDCUP PO PRN (09:12)
[2019-11-25] MEDS ORDERED: Artificial Tears 18 DROP/0.9 ML EA EYE PRN (09:12)
[2019-11-25] MEDS ORDERED: Mineral Oil ENEMA PR PRN (09:12)
[2019-11-25] MEDS ORDERED: Zolpidem Tartrate 5 MG TAB PO PRN (09:12)
[2019-11-25] MEDS ORDERED: Dextrose 50% Abboject 50 ML SYRINGE SLOW IVP PRN (09:19)
[2019-11-25] MEDS ORDERED: Dextrose 5% in Water 1,000 ML IV PRN (09:19)
[2019-11-25] MEDS ORDERED: Insulin Regular 300 UNITS/3 ML VIAL SC PRN (09:19)
[2019-11-25] MEDS ORDERED: Senokot S 8.6-50 MG TAB PO SCH (10:15)
[2019-11-25] MEDS ORDERED: Polyethylene Glycol 3350 17 GM Packet PO SCH (10:15)
--- NOTE | 2019-11-25 17:15 | PDOC.HOSPP ---
- Subjective Encounter Date: 11/25/19 Encounter Time: 17:13 Subjective: CC: f/u CABG The patient is doing better. This morning had some chills and felt nauseous walking to the bathroom. He has mild chest soreness. He finally had a bowel movement today which was explosive. Chest tubes removed. Patient showered today. Burnette in place - Objective Vital Signs & Weight: Vital Signs (12 hours) Temp Pulse Pulse Pulse Resp BP BP 11/25/19 16:02 98.9 F 79 20 11/25/19 13:28 86 78 178/83 H 11/25/19 12:01 11/25/19 11:58 56 L 138/65 11/25/19 11:49 98 F 78 20 11/25/19 09:00 97.8 F 81 20 11/25/19 08:00 98.7 F BP BP Pulse Ox Pulse Ox Pulse Ox 11/25/19 16:02 160/75 H 95 11/25/19 13:28 193/86 H 96 95 11/25/19 12:01 160/74 H 11/25/19 11:58 11/25/19 11:49 182/86 H 94 L 11/25/19 09:00 152/71 H 95 11/25/19 08:00 94 L Weight Weight 220 lb 0.341 oz Most Recent Monitor Data Heart Rate from ECG 80 NIBP 151/82 NIBP BP-Mean 105 Respiration from ECG 26 SpO2 100 I&O: 11/24/19 11/25/19 11/26/19 06:59 06:59 06:59 Intake Total 850 1290 Output Total 1560 6973 326 Balance -710 -2185 -340 Result Diagrams: 11/24/19 04:10 11/25/19 05:33 Additional Labs: Accuchecks 11/25/19 11/25/19 11/25/19 16:39 10:48 05:21 POC Glucose 114 H 137 H 110 11/24/19 11/24/19 21:08 11:10 POC Glucose 137 H 159 H Hospitalist ROS - Review of Systems Constitutional: denies: fever, chills - Medication Medications: Active Medications Generic Name Dose Route Start Last Admin Trade Name Freq PRN Reason Stop Dose Admin Acetaminophen 650 mg 11/22/19 21:43 11/24/19 16:43 Tylenol PO 650 mg Q6H PRN Administration Headache/Fever Or Mild Pain Acetaminophen 650 mg 11/23/19 01:15 11/23/19 01:30 Tylenol [place] 650 mg Q6H PRN Administration Headache/Fever or Pain Aspirin 81 mg 11/25/19 09:00 11/25/19 08:45 Aspirin Chewable PO 81 mg DAILY [facility] Administration Carvedilol 3.125 mg 11/23/19 17:00 11/25/19 07:58 Coreg PO 3.125 mg BID-WM [facility] Administration Clopidogrel Bisulfate 75 mg 11/25/19 09:00 11/25/19 08:45 Plavix PO 75 mg DAILY [facility] Administration Furosemide 40 mg 11/24/19 07:30 11/25/19 07:58 Lasix PO 40 mg DAILY-AC [facility] Administration Hydralazine HCl 10 mg 11/22/19 21:43 11/25/19 11:58 Apresoline SLOW IVP 10 mg Q6H PRN Administration To Maintain SBP< 140mmHG Ketorolac Tromethamine 30 mg 11/22/19 23:59 11/25/19 11:51 Toradol IVP 11/25/19 23:59 30 mg Q6HR SEEMA Administration Pantoprazole Sodium 40 mg 11/25/19 09:00 11/25/19 08:47 Protonix PO 40 mg DAILY [facility] Administration Potassium Chloride 20 meq 11/22/19 21:43 11/24/19 07:54 Kcl IVPB 20 meq PRN PRN Administration K level </= 4.0 Potassium Chloride 10 meq 11/24/19 08:00 11/25/19 07:58 Klor-Con 10 PO 10 meq QAM-WM [facility] Administration Simvastatin 40 mg 11/23/19 21:00 11/24/19 21:03 Zocor PO 40 mg QPM [facility] Administration Tamsulosin HCl 0.4 mg 11/22/19 09:00 11/25/19 08:45 Flomax PO 0.4 mg QAM [facility] Administration Tramadol HCl 50 mg 11/22/19 21:43 11/24/19 13:26 Ultram PO 50 mg Q6H PRN Administration Pain - Exam General Appearance: NAD, awake alert Eye: PERRL, anicteric sclera ENT: normocephalic atraumatic, no oropharyngeal lesions Neck: supple, symmetric, no JVD Heart: RRR, no murmur, no gallops, no rubs Respiratory: CTAB, no wheezes, no rales, no ronchi Gastrointestinal: soft, non-tender, non-distended, normal bowel sounds Extremities: no cyanosis, no clubbing, no edema Skin: normal turgor, no lesions, no rashes Hosp A/P - Plan CTA: multiple small bilateral parenchymal lung nodules. Atherosclerosis. Cardiac cath: LAD 75-80% lesions, ostial circumflex 75%, RCA mid 99%. EF 60-65% . Abdominal ultrasound: fatty liver This is 69 year old male with HTN, HLD, aneurysm of aorta who presented with left arm pain. Had cath which showed 3 vessel disease, s/p CABG 11/23. NSTEMI s/p CABG - on aspirin, plavix, coreg, lasix - chest tube management per surgery - burnette in place. Attempt to remove tomorrow - PTOT when okay by surgery Leukocytosis - WBC down to 11.4, likely stress from surgery. Anemia - Hb 13, continue to monitor. B12 and folate are normal Fatty liver - noted on abdominal ultrasound DVT prophylaxis: heparin SC Code status: full code
[2019-11-25 18:03] LABS: Hemoglobin 12.3 g/dL (14.0-18.0); Mean Corpuscular HGB CONC 32.2 g/dL (32.0-36.0); Mean Corpuscular Hemoglobin 28.4 pg (27.0-31.0); Mean Corpuscular Volume 88.4 fL (78.0-98.0); Mean Platelet Volume 6.7 fL (7.4-10.4); Platelet Count 230 thou/uL (130-400); RBC Distribution Width 12.1 % (11.5-14.5); Red Blood Cell (RBC) Count 4.34 mill/uL (4.70-6.10); White Blood Cell (WBC) Count 11.6 thou/uL (4.8-10.8)
[2019-11-25 18:27] LABS: Anion Gap 12 mmol/L (10-20); BUN (Urea Nitrogen) 11 mg/dL (8.4-25.7); Calc. Creatinine Clearance 119 mL/min (70-130); Carbon Dioxide 29 mmol/L (23-31); Chloride 98 mmol/L (98-107); Estimated GFR-MDRD 90; Glucose 127 mg/dL (80-115); Potassium 3.8 mmol/L (3.5-5.1); Sodium 135 mmol/L (136-145)
[2019-11-25] MEDS: Senokot S 8.6-50 MG TAB PO SCH (21:35)
[2019-11-25] MEDS: Simvastatin 40 MG TAB PO SCH (21:36)
[2019-11-26] MEDS: Ketorolac Tromethamine 30 MG/ML VIAL IVP SCH (01:20)
[2019-11-26 06:46] LABS: Hemoglobin 11.5 g/dL (14.0-18.0); Mean Corpuscular HGB CONC 33.5 g/dL (32.0-36.0); Mean Corpuscular Hemoglobin 29.6 pg (27.0-31.0); Mean Corpuscular Volume 88.4 fL (78.0-98.0); Mean Platelet Volume 6.6 fL (7.4-10.4); Platelet Count 235 thou/uL (130-400); RBC Distribution Width 12.2 % (11.5-14.5); White Blood Cell (WBC) Count 9.4 thou/uL (4.8-10.8)
[2019-11-26 07:05] LABS: Anion Gap 10 mmol/L (10-20); BUN (Urea Nitrogen) 12 mg/dL (8.4-25.7); Calc. Creatinine Clearance 134 mL/min (70-130); Calcium 8.8 mg/dL (7.8-10.44); Carbon Dioxide 29 mmol/L (23-31); Chloride 102 mmol/L (98-107); Estimated GFR-MDRD Greater than 90; Glucose 99 mg/dL (80-115); Potassium 3.7 mmol/L (3.5-5.1); Sodium 137 mmol/L (136-145)
[2019-11-26] MEDS ORDERED: Metolazone 5 MG TAB PO SCH (07:15)
[2019-11-26] MEDS: Potassium Chloride 10 MEQ TAB PO SCH (08:23)
[2019-11-26] MEDS: Furosemide 40 MG TAB PO SCH (08:23)
[2019-11-26] MEDS: Carvedilol 3.125 MG TAB PO SCH ×2 (08:23→17:55)
[2019-11-26] MEDS: Senokot S 8.6-50 MG TAB PO SCH ×2 (08:24→21:08)
[2019-11-26] MEDS: Lisinopril 10 MG TAB PO SCH (08:24)
[2019-11-26] MEDS: Aspirin Chewable 81 MG TAB PO SCH (08:24)
[2019-11-26] MEDS: Tamsulosin HCl 0.4 MG CAP PO SCH (08:24)
[2019-11-26] MEDS: Polyethylene Glycol 3350 17 GM Packet PO SCH (08:24)
[2019-11-26] MEDS: Clopidogrel Bisulfate 75 MG TAB PO SCH (08:24)
[2019-11-26] MEDS: Acetaminophen 325 MG TAB PO PRN (08:34)
--- NOTE | 2019-11-26 10:32 | EKG ---
Test Reason : POST CBG Blood Pressure : / mmHG Vent. Rate : 054 BPM Atrial Rate : 054 BPM P-R Int : 178 ms QRS Dur : 108 ms QT Int : 476 ms P-R-T Axes : 053 039 047 degrees QTc Int : 451 ms Sinus bradycardia Cannot rule out Inferior infarct , age undetermined Abnormal ECG When compared with ECG of 21-NOV-2019 19:54, (Unconfirmed) Non-specific change in ST segment in Inferior leads Inverted T waves have replaced nonspecific T wave abnormality in Anterolateral leads Confirmed by MERLINE BERRY (2) on 11/26/2019 10:31:56 AM Referred By: JERICHO Confirmed By:MERLINE BERRY
--- NOTE | 2019-11-26 10:33 | EKG ---
Test Reason : Blood Pressure : / mmHG Vent. Rate : 070 BPM Atrial Rate : 070 BPM P-R Int : 166 ms QRS Dur : 108 ms QT Int : 376 ms P-R-T Axes : 042 005 -43 degrees QTc Int : 406 ms Normal sinus rhythm Inferior infarct (cited on or before 22-NOV-2019) T wave abnormality, consider lateral ischemia Abnormal ECG When compared with ECG of 22-NOV-2019 21:25, (Unconfirmed) No significant change was found Confirmed by MERLINE BERRY (2) on 11/26/2019 10:33:28 AM Referred By: NIKKI Confirmed By:MERLINE BERRY
[2019-11-26] MEDS ORDERED: Lidocaine 5% Patch TD SCH (13:00)
[2019-11-26] MEDS ORDERED: guaiFENesin ER 600 MG TAB PO SCH (13:00)
[2019-11-26] MEDS ORDERED: Albuterol Sulfate 1.25 MG/3 ML NEB NEB SCH (13:00)
[2019-11-26] MEDS: traMADol HCl 50 MG TAB PO PRN ×2 (13:04→21:08)
--- NOTE | 2019-11-26 13:22 | PDOC.HOSPP ---
- Subjective Encounter Date: 11/26/19 Encounter Time: 13:19 Subjective: The patient feels he is going downhill. He reports chest congestion that he is unable to clear up with cough. Also has chills. He is starting to get a headache from the cough and has chest pain worst with coughing. HE is wondering whether he has pneumonia. Burnette removed today - Objective Vital Signs & Weight: Vital Signs (12 hours) Temp Pulse Pulse Pulse Resp BP BP 11/26/19 11:10 97.9 F 77 18 11/26/19 08:32 90 87 148/86 H 141/72 H 11/26/19 07:48 98.2 F 86 18 11/26/19 03:28 98.6 F 82 20 BP BP Pulse Ox Pulse Ox Pulse Ox 11/26/19 11:10 113/57 L 96 11/26/19 08:32 99 96 11/26/19 07:48 158/74 H 95 11/26/19 03:28 163/79 H 94 L Weight Weight 227 lb Most Recent Monitor Data Heart Rate from ECG 80 NIBP 151/82 NIBP BP-Mean 105 Respiration from ECG 26 SpO2 100 I&O: 11/25/19 11/26/19 11/27/19 06:59 06:59 06:59 Intake Total 1290 1440 Output Total 3471 5640 Balance -2186 -8542 Result Diagrams: 11/26/19 06:30 11/26/19 06:30 Additional Labs: Accuchecks 11/26/19 11/26/19 11/25/19 10:53 05:29 16:39 POC Glucose 141 H 105 114 H Hospitalist ROS - Review of Systems Constitutional: denies: fever, chills Respiratory: reports: cough Cardiovascular: reports: chest pain (pleuritic) Gastrointestinal: reports: nausea, vomiting, abdominal pain - Medication Medications: Active Medications Generic Name Dose Route Start Last Admin Trade Name Freq PRN Reason Stop Dose Admin Acetaminophen 650 mg 11/22/19 21:43 11/26/19 08:34 Tylenol PO 650 mg Q6H PRN Administration Headache/Fever Or Mild Pain Acetaminophen 650 mg 11/23/19 01:15 11/23/19 01:30 Tylenol [place] 650 mg Q6H PRN Administration Headache/Fever or Pain Aspirin 81 mg 11/25/19 09:00 11/26/19 08:24 Aspirin Chewable PO 81 mg DAILY [facility] Administration Carvedilol 3.125 mg 11/23/19 17:00 11/26/19 08:23 Coreg PO 3.125 mg BID-WM SEEMA Administration Clopidogrel Bisulfate 75 mg 11/25/19 09:00 11/26/19 08:24 Plavix PO 75 mg DAILY [facility] Administration Furosemide 40 mg 11/24/19 07:30 11/26/19 08:23 Lasix PO 40 mg DAILY-AC [facility] Administration Hydralazine HCl 10 mg 11/22/19 21:43 11/25/19 11:58 Apresoline SLOW IVP 10 mg Q6H PRN Administration To Maintain SBP< 140mmHG Lisinopril 10 mg 11/26/19 09:00 11/26/19 08:24 Zestril PO 10 mg DAILY [facility] Administration Pantoprazole Sodium 40 mg 11/25/19 09:00 11/26/19 08:24 Protonix PO 40 mg DAILY [facility] Administration Polyethylene Glycol 17 gm 11/26/19 09:00 11/26/19 08:24 Miralax PO Not Given DAILY [facility] Potassium Chloride 20 meq 11/22/19 21:43 11/24/19 07:54 Kcl IVPB 20 meq PRN PRN Administration K level </= 4.0 Potassium Chloride 10 meq 11/24/19 08:00 11/26/19 08:23 Klor-Con 10 PO 10 meq QAM-WM [facility] Administration Senna/Docusate Sodium 1 tab 11/25/19 21:00 11/26/19 08:24 Senokot S PO 1 tab BID [facility] Administration Simvastatin 40 mg 11/23/19 21:00 11/25/19 21:36 Zocor PO 40 mg QPM [facility] Administration Tamsulosin HCl 0.4 mg 11/22/19 09:00 11/26/19 08:24 Flomax PO 0.4 mg QAM [facility] Administration Tramadol HCl 50 mg 11/22/19 21:43 11/26/19 13:04 Ultram PO 50 mg Q6H PRN Administration Pain Zolpidem Tartrate 5 mg 11/25/19 09:12 11/25/19 23:07 Ambien PO 5 mg HSPRN PRN Administration Insomnia - Exam General Appearance: NAD, awake alert Eye: PERRL, anicteric sclera ENT: normocephalic atraumatic, no oropharyngeal lesions Neck: supple, symmetric, no JVD, no thyromegaly Heart: RRR, no murmur, no gallops, no rubs Respiratory - other findings: patient with bilateral crackles, decreased breath sounds Gastrointestinal: soft, non-tender, non-distended, normal bowel sounds Extremities: no cyanosis, no clubbing, no edema Skin: normal turgor, no lesions, no rashes Hosp A/P - Plan CTA: multiple small bilateral parenchymal lung nodules. Atherosclerosis. Cardiac cath: LAD 75-80% lesions, ostial circumflex 75%, RCA mid 99%. EF 60-65% . Abdominal ultrasound: fatty liver This is 69 year old male with HTN, HLD, aneurysm of aorta who presented with left arm pain. Had cath which showed 3 vessel disease, s/p CABG 11/23. #NSTEMI s/p CABG - on aspirin, plavix, coreg, lasix - chest tube management per surgery - burnette removed - PTOT #Pleuritic chest pain #Cough - has crackles on exam, chills. Will check CT chest for further evaluation. Chest Xray yesterday unremarkable - breathing treatments prn, incentive spirometry q2 hours - mucinex bid #Leukocytosis -resolved #Anemia - Hb 11, B12 and folate normal - will check iron panel in the am #Fatty liver - noted on abdominal ultrasound DVT prophylaxis: heparin SC Code status: full code
--- NOTE | 2019-11-26 13:39 | CT ---
EXAM: CT of the chest without contrast HISTORY: Pleuritic chest pain and chills. Status post open heart surgery 2 days ago COMPARISON: None TECHNIQUE: Multiple contiguous axial images were obtained in a CT the chest without contrast. Coronal and sagittal reformats were performed. FINDINGS: HEART: Slight pericardial thickening. Status post sternotomy. Calcic lesions in the coronary arteries . MEDIASTINUM: No hilar or mediastinal lymphadenopathy. There is a small amount of air in the anterior mediastinum from recent surgery. Evaluation of the mediastinum is limited without IV contrast. Central venous catheter is seen with its tip in the superior vena cava. LUNGS: No focal infiltrates, nodules, or masses. PLEURAL SPACE: Small bilateral pleural effusions with adjacent atelectasis. CHEST WALL SOFT TISSUES: Unremarkable OSSEOUS STRUCTURES: Degenerative changes in the spine. VISUALIZED SUBDIAPHRAGMATIC STRUCTURES: Left renal cortical thinning. IMPRESSION: Small bilateral pleural effusions with adjacent atelectasis.
--- NOTE | 2019-11-26 15:02 | PDOC.CPN ---
- Subjective Date: 11/26/19 Time: 15:02 Interval history: the pt seen and examined. No overnight events. No cardiac complaints. - Objective Allergies/Adverse Reactions: Allergies Allergy/AdvReac Type Severity Reaction Status Date / Time No Known Drug Allergies Allergy Verified 11/21/19 22:49 Visit Medications: Current Medications Acetaminophen (Tylenol) 650 mg PO Q6H PRN PRN Reason: Headache/Fever Or Mild Pain Last Admin: 11/26/19 08:34 Dose: 650 mg Acetaminophen (Tylenol) [address] Q6H PRN PRN Reason: Headache/Fever or Pain Last Admin: 11/23/19 01:30 Dose: 650 mg Al Hydroxide/Mg Hydroxide (Maalox) 30 ml PO Q4H PRN PRN Reason: Indigestion Albuterol/Ipratropium (Duoneb) 3 ml NEB [id number] PRN PRN Reason: SHORTNESS OF BREATH Artificial Tears (Tears Naturale) 1 drop EA EYE PRN PRN PRN Reason: Dry Eyes Aspirin (Aspirin Chewable) 81 mg PO DAILY [facility] Last Admin: 11/26/19 08:24 Dose: 81 mg Bisacodyl (Dulcolax) [address] Q12H PRN PRN Reason: Constipation Carvedilol (Coreg) 3.125 mg PO BID-[facility] Last Admin: 11/26/19 08:23 Dose: 3.125 mg Clopidogrel Bisulfate (Plavix) 75 mg PO DAILY [facility] Last Admin: 11/26/19 08:24 Dose: 75 mg Dextrose/Water (Dextrose 50%) 25 gm SLOW IVP PRN PRN PRN Reason: PER HYPOGLYCEMIC PROTOCOL Diphenhydramine HCl (Benadryl) 25 mg PO Q6H PRN PRN Reason: Itching & Insomnia or Tavares Suman Furosemide (Lasix) 40 mg PO DAILY-AC [facility] Last Admin: 11/26/19 08:23 Dose: 40 mg Glucagon (Glucagon) 1 mg SC PRN PRN PRN Reason: PER HYPOGLYCEMIC PROTOCOL Guaifenesin (Mucinex) 600 mg PO Q12HR [facility] Guaifenesin/Dextromethorphan (Robitussin Dm) 15 ml PO Q4H PRN PRN Reason: Cough Hydralazine HCl (Apresoline) 10 mg SLOW IVP Q6H PRN PRN Reason: To Maintain SBP< 140mmHG Last Admin: 11/25/19 11:58 Dose: 10 mg Dextrose/Water (D5w) 1,000 mls @ 0 mls/hr IV INF PRN PRN Reason: PRN HYPOGLYCEMIC PROTOCOL Insulin Human Regular (Humulin R) 0 units SC Q4H PRN; Protocol PRN Reason: POST OP SLIDING SCALE Lidocaine (Lidoderm 5% Patch) 1 patch TD 1300 [facility] Last Admin: 11/26/19 13:53 Dose: 1 patch Lisinopril (Zestril) 10 mg PO DAILY [facility] Last Admin: 11/26/19 08:24 Dose: 10 mg Magnesium Hydroxide (Milk Of Magnesium) 30 ml PO Q12H PRN PRN Reason: Constipation Mineral Oil (Fleet Mineral Oil) [address] DAILYPRN PRN PRN Reason: Constipation Miscellaneous Medication (Lidocaine Patch Removal) 1 each TOP 0100 [facility] Nitroglycerin (Nitrostat) 0.4 mg SL Q5MIN PRN PRN Reason: Chest Pain Ondansetron HCl (Zofran) 4 mg IVP Q6H PRN PRN Reason: Nausea/Vomiting Pantoprazole Sodium (Protonix) 40 mg PO DAILY [facility] Last Admin: 11/26/19 08:24 Dose: 40 mg Polyethylene Glycol (Miralax) 17 gm PO DAILY [facility] Last Admin: 11/26/19 08:24 Dose: Not Given Potassium Chloride (Kcl) 20 meq IVPB PRN PRN PRN Reason: K level </= 4.0 Last Admin: 11/24/19 07:54 Dose: 20 meq Potassium Chloride (Klor-Con 10) 10 meq PO QAM-WM [facility] Last Admin: 11/26/19 08:23 Dose: 10 meq Senna/Docusate Sodium (Senokot S) 1 tab PO BID [facility] Last Admin: 11/26/19 08:24 Dose: 1 tab Simvastatin (Zocor) 40 mg PO QPM [facility] Last Admin: 11/25/19 21:36 Dose: 40 mg Sodium Chloride (Flush - Normal Saline) 10 ml IVF PRN PRN PRN Reason: Saline Flush Tamsulosin HCl (Flomax) 0.4 mg PO QAM [facility] Last Admin: 11/26/19 08:24 Dose: 0.4 mg Tramadol HCl (Ultram) 50 mg PO Q6H PRN PRN Reason: Pain Last Admin: 11/26/19 13:04 Dose: 50 mg Zolpidem Tartrate (Ambien) 5 mg PO HSPRN PRN PRN Reason: Insomnia Last Admin: 11/25/19 23:07 Dose: 5 mg Vital Signs & Weight: Vital Signs Temp Pulse Pulse Pulse Resp BP BP 11/26/19 14:39 11/26/19 14:36 76 16 11/26/19 11:10 97.9 F 77 18 11/26/19 08:32 90 87 148/86 H 141/72 H 11/26/19 07:48 98.2 F 86 18 11/26/19 03:28 98.6 F 82 20 BP BP Pulse Ox Pulse Ox Pulse Ox 11/26/19 14:39 95 11/26/19 14:36 95 11/26/19 11:10 113/57 L 96 11/26/19 08:32 99 96 11/26/19 07:48 158/74 H 95 11/26/19 03:28 163/79 H 94 L Weight 227 lb - Quality Measures CV meds: Beta Louisa: No (will start today if BP stable.), PB/ARB: Yes, Statin : Yes - Physical Exam General: alert & oriented x3 HEENT: mucus membranes moist Neck: supple neck Lungs: decreased breath sounds Neuro: cranial nerve 2-12 intact Extremities: no edema - Labs Result Diagrams: 11/26/19 06:30 11/26/19 06:30 Troponin/CKMB CK-MB (CK-2) 68.8 ng/mL (0-6.6) H* 11/23/19 15:59 Troponin I 15.914 ng/mL (< 0.028) H* 11/23/19 15:59 - Telemetry Sinus rhythms and dysrhythmias: sinus rhythm - Assessment/Plan Assessment/Plan: 1. CAD with S/P CABG on 11/22/2019 with CURTIS to LAD, Radial to the RCA, unable to bypass the L-circ. due to unavailable vein graft material - stable; on Coreg , ASA, and Statin 2. DM: reasonable control. On sliding scale. 3. HTN: well controlled at this time. 4. dyslipidemia: continue statins 5. Fatty Liver MAR reviewed Pt. seen and eval. by me. I agree with the A/P by the ASSISTANT CENTER DIRECTOR. Left arm still somewhat tender but healing well after radial artery graft.
--- NOTE | 2019-11-26 15:25 | PRG ---
DATE OF SERVICE: 11/24/2019 SUBJECTIVE: Jose Armando has no complaints other than a little chest discomfort when he is sitting up in the chair today. OBJECTIVE: VITAL SIGNS: Oximetry is 94% on 3 L, heart rate is 69, blood pressure is 124/67. Intake and outputs . LUNGS: Clear. HEART: Regular rhythm. S1 and S2 are normal. ABDOMEN: Soft and nontender. EXTREMITIES: Without asymmetry or edema. LABORATORY DATA: White count 11.4, hemoglobin 11.2, platelets 175. Sodium 136, potassium 3.8, chloride 101, bicarb 30, BUN 13, creatinine 0.8. IMPRESSION: Status post coronary artery bypass grafting, clinically stable. His chest radiograph today is unchanged. He still has his chest tube in place. He had mL out of his tubes in the last 24 hours per the intake and output document. We will continue to follow along with Surgery. Job ID: [id number]
[2019-11-26] MEDS: Simvastatin 40 MG TAB PO SCH (21:08)
[2019-11-26] MEDS: guaiFENesin ER 600 MG TAB PO SCH (21:08)
[2019-11-27] MEDS ORDERED: Lidocaine Patch Removal 1 EACH TOP SCH (01:00)
[2019-11-27] MEDS: traMADol HCl 50 MG TAB PO PRN (02:34)
[2019-11-27 07:47] LABS: Hemoglobin 12.3 g/dL (14.0-18.0); Mean Corpuscular HGB CONC 33.5 g/dL (32.0-36.0); Mean Corpuscular Hemoglobin 29.5 pg (27.0-31.0); Mean Corpuscular Volume 88.2 fL (78.0-98.0); Mean Platelet Volume 6.4 fL (7.4-10.4); Platelet Count 288 thou/uL (130-400); RBC Distribution Width 12.3 % (11.5-14.5); Red Blood Cell (RBC) Count 4.16 mill/uL (4.70-6.10)
[2019-11-27 07:59] LABS: Iron 22 ug/dL (65-175); Iron Binding Capacity, Total 279 mcg/dL (261-462)
[2019-11-27 08:00] LABS: Anion Gap 12 mmol/L (10-20); BUN (Urea Nitrogen) 15 mg/dL (8.4-25.7); Calc. Creatinine Clearance 120 mL/min (70-130); Calcium 9.2 mg/dL (7.8-10.44); Carbon Dioxide 29 mmol/L (23-31); Chloride 94 mmol/L (98-107); Estimated GFR-MDRD Greater than 90; Glucose 111 mg/dL (80-115); Iron 22 ug/dL (65-175); Iron Binding Capacity, Total 274 mcg/dL (261-462); Potassium 3.3 mmol/L (3.5-5.1); Sodium 132 mmol/L (136-145)
[2019-11-27] MEDS: Tamsulosin HCl 0.4 MG CAP PO SCH (08:38)
[2019-11-27] MEDS: Senokot S 8.6-50 MG TAB PO SCH (08:38)
[2019-11-27] MEDS: Aspirin Chewable 81 MG TAB PO SCH (08:38)
[2019-11-27] MEDS: Potassium Chloride 10 MEQ TAB PO SCH (08:39)
[2019-11-27] MEDS: Clopidogrel Bisulfate 75 MG TAB PO SCH (08:39)
[2019-11-27] MEDS: Polyethylene Glycol 3350 17 GM Packet PO SCH (08:39)
[2019-11-27] MEDS: guaiFENesin ER 600 MG TAB PO SCH (08:39)
[2019-11-27] MEDS: Carvedilol 3.125 MG TAB PO SCH (08:39)
[2019-11-27] MEDS: Furosemide 40 MG TAB PO SCH (08:39)
[2019-11-27] MEDS: Lisinopril 10 MG TAB PO SCH (08:43)
[2019-11-27] MEDS ORDERED: Potassium Chloride 20 MEQ TAB PO SCH (09:30)
--- NOTE | 2019-11-27 10:52 | DIS ---
DATE OF ADMISSION: 11/22/2019 DATE OF DISCHARGE: 11/27/2019 DIAGNOSES: 1. Coronary artery disease. 2. Diabetes mellitus. 3. Hypertension. 4. Dyslipidemia. 5. Status post ablation of his bilateral greater saphenous veins. PROCEDURES: 1. Cardiac catheterization. 2. Urgent coronary artery bypass grafting x2 - left internal mammary artery to left anterior descending, left radial artery to posterior descending artery. DESCRIPTION OF HOSPITAL STAY: Mr. Suárez was brought in with chest pain. 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 He has had a venous ablation. Ultrasound was used to interrogate his venous system and there was no usable venous conduit. We took the full length of his radial artery and his mammary artery bilaterally. His right internal mammary artery was inadequate to use for bypass conduit. Due to the lack of conduit, we bypassed his LAD and right systems. His circumflex was not bypassable and will have to be dealt with in the future if it becomes an issue with interventional means. He is not a candidate for any further bypass procedures due to no conduit. Postoperatively, he has done well. He has had no rhythm issues. He is being discharged to home in good condition to follow up with me in [address] Choe in a month. DISCHARGE MEDICATIONS: Include; 1. Aspirin 81 mg daily. 2. Plavix 75 mg daily. 3. Coreg 3.125 mg b.i.d. 4. Lisinopril 10 mg daily. 5. Flomax 0.4 mg daily. 6. Metformin 500 mg daily. 7. Fish oil 1000 mg daily. 8. Lipitor 20 mg at bedtime. Job ID: [id number]
[2019-11-27 12:43] VITALS: BP 132/67; TEMP 97.5
--- NOTE | 2019-11-27 13:49 | PDOC.CPN ---
- Subjective Date: 11/27/19 Time: 08:30 Interval history: The pt seen and examined. No overnight events. No cardiac complaints. - Objective Allergies/Adverse Reactions: Allergies Allergy/AdvReac Type Severity Reaction Status Date / Time No Known Drug Allergies Allergy Verified 11/21/19 22:49 Vital Signs & Weight: Vital Signs Temp Pulse Resp BP BP Pulse Ox 11/27/19 11:30 97.5 F L 69 18 132/67 95 11/27/19 08:43 110/60 11/27/19 07:42 97.6 F 66 20 110/60 96 11/27/19 03:28 97.9 F 69 20 113/69 96 Weight 216 lb - Quality Measures CV meds: Beta Louisa: No (will start today if BP stable.), PB/ARB: Yes, Statin : Yes - Physical Exam General: alert & oriented x3 HEENT: mucus membranes moist Neck: supple neck Cardiac: regular rate and rhythm, S1/S2 Lungs: clear to auscultation Neuro: cranial nerve 2-12 intact - Labs Result Diagrams: 11/27/19 07:37 11/27/19 07:37 Troponin/CKMB CK-MB (CK-2) 68.8 ng/mL (0-6.6) H* 11/23/19 15:59 Troponin I 15.914 ng/mL (< 0.028) H* 11/23/19 15:59 - Telemetry Sinus rhythms and dysrhythmias: sinus rhythm - Assessment/Plan Assessment/Plan: 1. CAD with S/P CABG on 11/22/2019 with CURTIS to LAD, Radial to the RCA, unable to bypass the L-circ. due to unavailable vein graft material - stable; on Coreg , ASA, and Statin 2. DM: reasonable control. On sliding scale. 3. HTN: well controlled at this time. 4. dyslipidemia: continue statins 5. Fatty Liver MAR reviewed * the pt will f/u with Dr Choe' office within 2 wks.
== END 2019-11-27 12:35 | disposition home or self-care (01) | DRG 233 ==
LOC: ERS 19:31 → 2SW 21:24 → OBSVTOIN 11-22 05:30 → 2NO 11-22 15:59 → CCU 11-22 16:19 → 2NO 11-25 09:07
PROVIDERS: ADMIT Internal Medicine; ATTEND Internal Medicine
PROC: 4A023N7 Measurement of Cardiac Sampling and Pressure, Left Heart, Percutaneous Approach (ICD-10-PCS; principal; 2019-11-22)
PROC: 02100Z9 Bypass Coronary Artery, One Artery from Left Internal Mammary, Open Approach (ICD-10-PCS; 2019-11-22)
PROC: 02100AW Bypass Coronary Artery, One Artery from Aorta with Autologous Arterial Tissue, Open Approach (ICD-10-PCS; 2019-11-22)
PROC: B2111ZZ Fluoroscopy of Multiple Coronary Arteries using Low Osmolar Contrast (ICD-10-PCS; 2019-11-22)
PROC: B2151ZZ Fluoroscopy of Left Heart using Low Osmolar Contrast (ICD-10-PCS; 2019-11-22)
PROC: 5A1221Z Performance of Cardiac Output, Continuous (ICD-10-PCS; 2019-11-22)
DX: I25.10 Atherosclerotic heart disease of native coronary artery without angina pectoris (principal); I21.4 Non-ST elevation (NSTEMI) myocardial infarction; E11.9 Type 2 diabetes mellitus without complications; I10 Essential (primary) hypertension; E78.5 Hyperlipidemia, unspecified; I16.0 Hypertensive urgency; F15.10 Other stimulant abuse, uncomplicated; Z82.49 Family history of ischemic heart disease and other diseases of the circulatory system; Z87.891 Personal history of nicotine dependence; D64.9 Anemia, unspecified; K76.0 Fatty (change of) liver, not elsewhere classified; D72.829 Elevated white blood cell count, unspecified
CPT/HCPCS: 36415; 36416; 36430; 71045; 71250; 71275; 72191; 74175; 76705; 80048; 80053; 80061; 80306; 82550; 82553; 82607; 82728; 82746; 82805; 83540; 83550; 83735; 84484; 85025; 85027; 85610; 85730; 86850; 86900; 86901; 93005; 93010; 93458; 93798; 94002; 94003; 94150; C1769; J0360; J0690; J1100; J1644; J1815; J1885; J2001; J2250; J2270; J2440; J2720; J3010; J3370; J3475; J3480; P9045; Q9967; S0017; S0020; S0028

== ENCOUNTER 2020-07-17 17:16 | Observation (INO) | payer OTHER ==
[2020-07-17] MEDS ORDERED: Aspirin Chewable 81 MG TAB ONE (17:35)
[2020-07-17] MEDS ORDERED: Nitroglycerin 0.4 MG TAB 1 EACH ONE (17:35)
[2020-07-17] MEDS ORDERED: Nitroglycerin 2% Ointment 1 INCH/1 GM Packet ONE (17:35)
[2020-07-17 17:50] LABS: #Basophils 0.1 thou/uL (0.0-0.2); #Eosinphils 0.2 thou/uL (0.0-0.7); #Lymphocytes 1.9 thou/uL (1.20-3.40); #Monocytes 0.6 thou/uL (0.11-0.59); %Basophils 0.6 % (0.0-1.0); %Eosinophils 1.9 % (0.0-10.0); %Lymphocytes 19.2 % (21.0-51.0); %Monocytes 6.5 % (0.0-10.0); %Neutrophils 71.8 % (42.0-75.0); Hemoglobin 14.7 g/dL (14.0-18.0); Mean Corpuscular HGB CONC 32.5 g/dL (32.0-36.0); Mean Corpuscular Hemoglobin 27.7 pg (27.0-31.0); Mean Corpuscular Volume 85.3 fL (78.0-98.0); Mean Platelet Volume 7.2 fL (7.4-10.4); Platelet Count 297 thou/uL (130-400); White Blood Cell (WBC) Count 9.8 thou/uL (4.8-10.8)
--- NOTE | 2020-07-17 18:05 | RAD ---
Exam: Chest one view HISTORY:Chest pain Comparison: 11/25/2019 FINDINGS: Cardiac silhouette:Normal cardiac silhouette. There are sternotomy wires. Aorta: Unremarkable Pulmonary vessels: Normal Costophrenic angles: Clear LUNGS: No masses or consolidation. Pneumothorax: None Osseous abnormalities: None IMPRESSION: No acute cardiopulmonary process.
[2020-07-17 18:09] LABS: ALT (SGPT) 13 U/L (8-55); AST (SGOT) 12 U/L (5-34); Albumin 4.6 g/dL (3.4-4.8); Alkaline Phosphatase 127 U/L (40-110); Anion Gap 14 mmol/L (10-20); BUN (Urea Nitrogen) 9 mg/dL (8.4-25.7); Bilirubin, Total 1.6 mg/dL (0.2-1.2); Calc. Creatinine Clearance 0 mL/min (70-130); Calcium 9.8 mg/dL (7.8-10.44); Carbon Dioxide 26 mmol/L (23-31); Chloride 101 mmol/L (98-107); Estimated GFR-MDRD 67; Globulin 3.8 g/dL (2.4-3.5); Glucose 160 mg/dL (80-115); Protein, Total 8.4 g/dL (5.8-8.1); Sodium 137 mmol/L (136-145)
[2020-07-17] MEDS ORDERED: HumaLOG 300 UNITS/3 ML VIAL SC PRN (19:56)
[2020-07-17] MEDS ORDERED: Dextrose 5% in Water 1,000 ML IV PRN ×2 (19:56→19:57)
[2020-07-17] MEDS ORDERED: Dextrose 50% Abboject 50 ML SYRINGE SLOW IVP PRN ×2 (19:56→19:57)
[2020-07-17] MEDS ORDERED: Insulin Regular 300 UNITS/3 ML VIAL SC PRN (19:57)
[2020-07-17 21:26] LABS: Troponin I Less than 0.010 ng/mL (< 0.028)
[2020-07-17 22:09] VITALS: BMI 28.8
[2020-07-17] MEDS: Acetaminophen 325 MG TAB PO PRN (22:40)
--- NOTE | 2020-07-17 23:50 | HP ---
REASON FOR ADMISSION: Chest pain. HISTORY OF PRESENT ILLNESS: This is a 70-year-old male patient who is presenting with chest pain. History going back to four days before his presentation, he has been experiencing chest pain described as pressure-like in nature, localized in the left parasternal area, nonradiating, not associated with activity, is associated with shortness of breath, initially off and on, but today though his chest pain was constant. 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 The patient had an open heart surgery in November. Since then, he has been doing well until the past four days. The patient states that he if he leans forward, the chest pain does increase in intensity and also increases when he takes a deep breath, but he cannot reproduce it with palpation. He claims that nitroglycerin did help him. He says that he has been taking his blood pressure medication as prescribed and that even yesterday his blood pressure was on the low side. I did review his records and it seems that his last hospitalization was in November for chest pain and found to have severe three-vessel disease. He did have a bypass of his LAD, but did not have a bypass of his circumflex due to no conduit. PAST MEDICAL HISTORY: 1. Coronary artery disease, status post CABG. 2. Diabetes, type 2. 3. High blood pressure. 4. High cholesterol. 5. Status post ablation of his bilateral greater saphenous veins. 6. Fatty liver. 7. History of an aortic aneurysm. 8. Herniorrhaphy. 9. Post tonsillectomy. SOCIAL HISTORY: He does not smoke, quit in 1994. Drinks alcohol socially. FAMILY HISTORY: Negative for premature coronary artery disease. ALLERGIES: NO NOTE OF ANY DRUG ALLERGY. PHYSICAL EXAMINATION: GENERAL: Awake, alert, oriented, does not appear in distress. VITAL SIGNS: His blood pressure is 132/67, heart rate of 69, temperature is 97.5, and saturating 95% on room air. HEENT: Head is nontraumatic and normocephalic. Pupils equal, reactive. Extraocular motors are intact. Nonicteric sclerae. Well injected conjunctivae. Oral mucosa normal. Nasal mucosa normal. NECK: Supple. No adenopathy. No murmur. Thyroid is not palpable. Trachea is midline. No supraclavicular lymphadenopathy. HEART: S1 and S2, regular. No murmur. No gallops. No friction rubs. No displacement of PMI. LUNGS: Clear to auscultation bilaterally. No wheezes. No rhonchi. No crackles. ABDOMEN: Bowel sounds are positive. Nontender abdomen. No hepatosplenomegaly. EXTREMITIES: No lower extremity edema. No cyanosis noted. NEUROLOGIC: Cranial nerves 2 through 12 within normal limits. Normal motor function. Normal sensory function. Normal reflexes. LABORATORY DATA: Blood work shows WBC of 9.8, hemoglobin 14.7, platelets of 297. INR 1.4. Sodium 137, potassium 4, bicarb 26, creatinine 1.1. EKG shows normal sinus rhythm and nonspecific ST-segment T-wave changes in V5, V6, as per my read. ASSESSMENT AND PLAN: This is a 70-year-old male patient presenting with chest pain. He did undergo a coronary artery bypass grafting in November. His circumflex was not bypassable due to nonconduit, he returns with chest pain. Cardiac. The patient will be admitted to telemetry. We will continue cycling his cardiac enzymes. Provide him with blood pressure control. Resume his home medications and schedule him for a nuclear stress test in the morning. For deep venous thrombosis prophylaxis, he will be on Lovenox and SCDs. Endocrinology: He is diabetic. We will have him on insulin sliding scale and we will hold his metformin. I did discuss with him his code status and he wishes to be a full code. Job ID: [id number]
[2020-07-18 00:03] LABS: Troponin I 0.015 ng/mL (< 0.028)
[2020-07-18] MEDS ORDERED: traMADol HCl 50 MG TAB PO PRN (06:04)
[2020-07-18] MEDS: Acetaminophen 325 MG TAB PO PRN (08:43)
[2020-07-18] MEDS ORDERED: Ascorbic Acid 500 mg Chewable Tablet PO SCH (09:00)
[2020-07-18] MEDS ORDERED: Aspirin Chewable 81 MG TAB PO SCH (09:00)
[2020-07-18] MEDS ORDERED: Clopidogrel Bisulfate 75 MG TAB PO SCH (09:00)
[2020-07-18] MEDS ORDERED: Fish Oil 1,000 MG CAP PO SCH (09:00)
[2020-07-18] MEDS ORDERED: Enoxaparin Sodium 40 MG/0.4 ML SYRINGE SC SCH (09:00)
[2020-07-18] MEDS ORDERED: Multivitamin W/ Minerals 1 TAB PO SCH (09:00)
[2020-07-18] MEDS ORDERED: Lisinopril 10 MG TAB PO SCH (09:00)
[2020-07-18] MEDS ORDERED: Tamsulosin HCl 0.4 MG CAP PO SCH (09:00)
[2020-07-18] MEDS ORDERED: ASCORBIC ACID 500 MG PO SCH (09:00)
[2020-07-18] MEDS ORDERED: ADENOSINE 60 MG/20 ML VIAL ONE (14:14)
[2020-07-18 14:20] LABS: SARS-CoV-2 MS2 Positive; SARS-CoV-2 N Gene Negative; SARS-CoV-2 S Gene Negative; SARS-CoV-2 by NAA Not Detected (NotDetected); SARS-CoV-2 orf1ab Negative
[2020-07-18] MEDS: Carvedilol 3.125 MG TAB PO SCH ×2 (14:49→16:42)
[2020-07-18 15:13] VITALS: BP 117/67; TEMP 97.9
--- NOTE | 2020-07-18 16:12 | NM ---
Exam: Nuclear medicine cardiac stress with EF and wall motion HISTORY: Chest pain. CABG x3 in November 2019. Status post ablation. TECHNIQUE: Patient was administered 9.0 mCi of technetium 99m sestamibi for rest imaging and 27.30 mC i of technetium 99M sestamibi for stress imaging. Cardiac gating was performed FINDINGS: There is no reversibility. There appears to be a fixed defect involving the septum near the base of t he heart. TID is 1.02 End-diastolic volume is 100 mL End systolic volume is 39 mL Cardiac gating: Appropriate wall motion and thickening. 61% ejection fraction IMPRESSION: 1. 61% ejection fraction. 2. No reversibility 2. Fixed defect involving the basal septum.
[2020-07-18] MEDS ORDERED: Atorvastatin Calcium 20 MG TAB PO SCH (21:00)
--- NOTE | 2020-07-19 00:15 | DIS ---
DATE OF ADMISSION: 07/17/2020 DATE OF DISCHARGE: 07/18/2020 HOSPITAL COURSE: Mr. Suárez is a 70-year-old male, with medical history of coronary artery disease, status post CABG in November of 2019, who presented with acute chest pain. He was diagnosed with noncardiac chest pain. The patient received analgesics, and nuclear stress test showed fixed defect involving the basal septum, but no reversibility. On the day of discharge, the chest pain resolved and the patient was discharged with followup appointments with his internal communications specialist.. PHYSICAL EXAMINATION: VITAL SIGNS: Blood pressure 117/67, pulse 67, respiratory rate 18, oxygen saturation 97% on room air, and temperature 97.9. GENERAL: Lying comfortably in bed. Awake and alert. HEENT: Normocephalic and atraumatic. CARDIAC: Regular rate and rhythm. No murmurs, gallops, or rubs. No JVD. LUNGS: Clear to auscultation bilaterally. No wheezing, rales, or rhonchi. GI: Soft, nontender, and nondistended. Normal bowel sounds. EXTREMITY: Strength 5/5 throughout upper and lower extremities. PSYCHIATRIC: Proper mood and affect. Alert and oriented x3. MEDICATION LIST: New medications: No new medications. Modified medications: Atorvastatin was changed from 20 mg at bedtime to 80 mg at bedtime due to coronary artery disease. Discontinued medications: No discontinued medications. Continued medications: 1. Vitamin C. 2. Aspirin 81 mg p.o. daily. 3. Plavix 75 mg p.o. daily. 4. Coreg 3.125 mg p.o. b.i.d. 5. Lisinopril 10 mg p.o. daily. 6. Multivitamin. 7. Tamsulosin 0.4 mg p.o. q.a.m. 8. Tramadol 50 mg p.o. q.6 hours p.r.n. pain. 9. Metformin 500 mg p.o. q.a.m. FOLLOWUP: The patient was requested to follow up with his internal communications specialist within a week and notify the internal communications specialist that the stress test was performed, so to obtain records. The internal communications specialist was planning on getting a stress test in about a week. Job ID: [id number]
== END 2020-07-18 18:00 | disposition home or self-care (01) ==
LOC: ERS 17:16 → 2SW 18:57
PROVIDERS: ADMIT Internal Medicine; ATTEND Internal Medicine
DX: R07.89 Other chest pain (principal); I25.10 Atherosclerotic heart disease of native coronary artery without angina pectoris; I10 Essential (primary) hypertension; E11.9 Type 2 diabetes mellitus without complications; E78.00 Pure hypercholesterolemia, unspecified; K76.0 Fatty (change of) liver, not elsewhere classified; Z79.82 Long term (current) use of aspirin; Z79.84 Long term (current) use of oral hypoglycemic drugs; Z79.899 Other long term (current) drug therapy; Z87.891 Personal history of nicotine dependence; Z95.1 Presence of aortocoronary bypass graft; Z20.828 Contact with and (suspected) exposure to other viral communicable diseases
CPT/HCPCS: 36415; 36416; 71045; 78452; 80053; 83880; 84484; 85025; 87635; 93005; 93017; 96372; A9500; G0378; J0153; J1650; U0003

== ENCOUNTER 2020-11-20 10:07 | Outpatient (CLI) | payer OTHER, BC ==
[2020-11-20 11:57] LABS: Bilirubin Neg (Negative); Blood, Urine Negative (Negative); Clarity Clear (Clear); Glucose, Urine (Dipstick) Normal (Negative); Ketone, Urine Negative (Negative); Leukocyte Negative (Negative); Nitrite Negative (Negative); Protein, Urine (Dipstick) Negative (Neg-Trace); Specific Gravity, Urine 1.005 (1.002-1.036); Urobilinogen Normal mg/dL (Less than 2)
[2020-11-20 12:02] LABS: Hemoglobin 14.2 g/dL (14.0-18.0); Mean Corpuscular HGB CONC 31.4 G/DL (32.0-36.0); Mean Corpuscular Hemoglobin 28.1 PG (27.0-33.0); Mean Corpuscular Volume 89.3 fl (80.0-100.0); Mean Platelet Volume 9.3 fl (7.4-10.4); Platelet Count 242 10x3/uL (130-400); RBC Distribution Width 13.4 % (11.5-14.5); Red Blood Cell (RBC) Count 5.06 10x6/uL (4.40-5.80); White Blood Cell (WBC) Count 6.8 10x3/uL (4.5-11.0)
[2020-11-20 12:20] LABS: PTT 27.1 sec (22.0-33.0); Prothrombin Time 10.8 sec (9.5-12.1)
[2020-11-20 12:24] LABS: Anion Gap 15 mmol/L (10-20); BUN (Urea Nitrogen) 10 mg/dL (8.4-25.7); Calc. Creatinine Clearance 0 mL/min (70-130); Calcium 9.3 mg/dL (7.8-10.44); Carbon Dioxide 29 mmol/L (23-31); Chloride 103 mmol/L (98-107); Glucose 83 mg/dL (80-115); Potassium 4.9 mmol/L (3.5-5.1); Sodium 142 mmol/L (136-145)
[2020-11-20 12:35] LABS: RBC/HPF None Seen HPF (0-3)
[2020-11-20 12:36] LABS: Bacteria/HPF None Seen HPF (None Seen); Squamous Epithelial 0-3 HPF (0-3); WBC/HPF None Seen HPF (0-3)
[2020-11-21 10:57] LABS: SARS-CoV-2 PCR by NAA Not Detected (NotDetected)
--- NOTE | 2020-11-29 19:35 | EKG ---
Test Reason : Blood Pressure : / mmHG Vent. Rate : 057 BPM Atrial Rate : 057 BPM P-R Int : 174 ms QRS Dur : 108 ms QT Int : 398 ms P-R-T Axes : 047 046 014 degrees QTc Int : 387 ms Sinus bradycardia T wave abnormality, consider inferior ischemia Abnormal ECG When compared with ECG of 17-JUL-2020 17:22, (Unconfirmed) No significant change was found Confirmed by ISIAH LOVE MD ([id number]) on 11/29/2020 7:35:06 PM Referred By: CROW Confirmed By:ISIAH LOVE MD
== END 2020-11-20 10:08 | disposition home or self-care (01) ==
LOC: LABBT 10:07
PROVIDERS: ATTEND Urology
DX: Z01.818 Encounter for other preprocedural examination (principal); Z20.822 Contact with and (suspected) exposure to COVID-19; Z12.5 Encounter for screening for malignant neoplasm of prostate; N40.1 Benign prostatic hyperplasia with lower urinary tract symptoms; N52.9 Male erectile dysfunction, unspecified; N48.6 Induration penis plastica; K42.9 Umbilical hernia without obstruction or gangrene; R91.1 Solitary pulmonary nodule; R33.8 Other retention of urine; N13.8 Other obstructive and reflux uropathy
CPT/HCPCS: 80048; 81001; 85027; 85610; 85730; 87086; 87635; 93005; 93010; U0003; U0005

== ENCOUNTER 2020-11-25 06:55 | Day surgery (SDC) | payer OTHER, BC ==
[2020-11-23 10:38] VITALS: BMI 28.8
[2020-11-25] MEDS ORDERED: Levofloxacin 500 mg/D5W 100 ml Premix Bag ONE (08:11)
[2020-11-25] MEDS ORDERED: Lidocaine 1% PF 5 ML VIAL ONE (10:14)
[2020-11-25] MEDS ORDERED: PROPOFOL 200 MG/20 ML VIAL ONE (10:14)
[2020-11-25] MEDS ORDERED: Phenazopyridine HCl 100 MG TAB ONE (10:37)
[2020-11-25] MEDS ORDERED: HYDROcodone/Acetaminophen 5/325 mg Tablet ONE (11:13)
== END 2020-11-25 15:05 | disposition home or self-care (01) ==
LOC: SDC 06:55
PROVIDERS: ATTEND Urology
PROC: 0T7D8DZ Dilation of Urethra with Intraluminal Device, Via Natural or Artificial Opening Endoscopic (ICD-10-PCS; principal; 2020-11-25)
DX: N40.1 Benign prostatic hyperplasia with lower urinary tract symptoms (principal); R39.14 Feeling of incomplete bladder emptying; N13.8 Other obstructive and reflux uropathy; N52.9 Male erectile dysfunction, unspecified; I10 Essential (primary) hypertension; E78.5 Hyperlipidemia, unspecified; N48.6 Induration penis plastica; F41.9 Anxiety disorder, unspecified; M19.90 Unspecified osteoarthritis, unspecified site; E78.00 Pure hypercholesterolemia, unspecified; E11.9 Type 2 diabetes mellitus without complications; I25.10 Atherosclerotic heart disease of native coronary artery without angina pectoris; K42.9 Umbilical hernia without obstruction or gangrene; Z87.891 Personal history of nicotine dependence; Z79.02 Long term (current) use of antithrombotics/antiplatelets; Z79.82 Long term (current) use of aspirin; Z79.84 Long term (current) use of oral hypoglycemic drugs; Z79.899 Other long term (current) drug therapy; Z88.8 Allergy status to other drugs, medicaments and biological substances; Z95.1 Presence of aortocoronary bypass graft
CPT/HCPCS: J1956; J2704; L8699

== ENCOUNTER 2022-08-31 09:21 | Outpatient (CLI) | payer OTHER ==
[2022-08-31] MEDS ORDERED: Iopamidol-370 76% 500 ML 1 ML ONE (09:40)
== END 2022-08-31 09:22 | disposition home or self-care (01) ==
LOC: BICCT 09:21
PROVIDERS: ATTEND Specialist
DX: S39.011A Strain of muscle, fascia and tendon of abdomen, initial encounter (principal); R10.33 Periumbilical pain
CPT/HCPCS: 72193; 82565; Q9967

== ENCOUNTER 2023-01-11 07:23 | Outpatient (CLI) | payer OTHER ==
[2023-01-11] MEDS ORDERED: Iopamidol 370 76% 100 ML VIAL ONE (17:12)
== END 2023-01-11 07:24 | disposition home or self-care (01) ==
LOC: CT 07:23
PROVIDERS: ATTEND Thoracic Surgery (Cardiothoracic Vascular Surgery)
DX: I71.40 Abdominal aortic aneurysm, without rupture, unspecified (principal); D35.01 Benign neoplasm of right adrenal gland; R91.1 Solitary pulmonary nodule; K57.30 Diverticulosis of large intestine without perforation or abscess without bleeding; N20.0 Calculus of kidney
CPT/HCPCS: 71275; 74174; 82565; Q9967

== ENCOUNTER 2023-09-20 07:21 | Outpatient (CLI) | payer OTHER, BC ==
[2023-09-20] MEDS ORDERED: Iopamidol 370 76% 100 ML VIAL ONE (10:37)
== END 2023-09-20 07:22 | disposition home or self-care (01) ==
LOC: BICCT 07:21
PROVIDERS: ATTEND Internal Medicine Cardiovascular Disease
DX: I71.21 Aneurysm of the ascending aorta, without rupture (principal)
CPT/HCPCS: 71275

== ENCOUNTER 2024-08-15 18:46 | Emergency (ER) | payer OTHER ==
[~2024-08-15 18:46] MED LIST changes: -Iopamidol-370 76% 500 ML 1 ML ONE; +Iopamidol-370 76% 500 ML MDV (1 ML CHARGE) ONE
[2024-08-15 19:15] LABS: #Basophils 0.12 10x3/uL (0.0-0.2); %Basophils 1.6 % (0.0-1.0); %Eosinophils 5.1 % (0.0-10.0); %Lymphocytes 35.9 % (21.0-51.0); %Monocytes 11.5 % (0.0-10.0); %Neutrophils 45.4 % (42.0-75.0); Hematocrit 45.4 % (42.0-52.0); Hemoglobin 15.1 g/dL (14.0-18.0); Mean Corpuscular HGB CONC 33.3 g/dL (32.0-36.0); Mean Corpuscular Hemoglobin 29.7 pg (27.0-31.0); Mean Corpuscular Volume 89.2 fL (78.0-98.0); Mean Platelet Volume 8.9 fL (7.4-10.4); Platelet Count 256 10x3/uL (130-400); RBC Distribution Width 13.1 % (11.5-14.5); Red Blood Cell (RBC) Count 5.09 mill/uL (4.70-6.10)
[2024-08-15 19:31] LABS: ALT (SGPT) 25 U/L (8-55); AST (SGOT) 24 U/L (5-34); Albumin 4.1 g/dL (3.4-4.8); Alkaline Phosphatase 100 U/L (40-110); Anion Gap 13 mmol/L (10-20); BUN (Urea Nitrogen) 8 mg/dL (8.4-25.7); Bilirubin, Total 1.6 mg/dL (0.2-1.2); Calc. Creatinine Clearance 0 mL/min (70-130); Calcium 9.5 mg/dL (7.8-10.44); Carbon Dioxide 25 mmol/L (23-31); Chloride 107 mmol/L (98-107); Estimated GFR 71; Globulin 3.4 g/dL (2.4-3.5); Glucose 110 mg/dL (83-110); Potassium 3.8 mmol/L (3.5-5.1); Protein, Total 7.5 g/dL (5.8-8.1); Sodium 141 mmol/L (136-145)
[2024-08-15 19:36] LABS: Troponin I 0.011 ng/mL (< 0.028)
[2024-08-15] MEDS ORDERED: cloNIDine 0.1 MG TAB ONE (20:33)
== END 2024-08-15 22:17 | disposition home or self-care (01) ==
LOC: ERS 18:46
DX: I10 Essential (primary) hypertension (principal); E11.9 Type 2 diabetes mellitus without complications; Z87.891 Personal history of nicotine dependence; Z95.1 Presence of aortocoronary bypass graft
CPT/HCPCS: 71045; 71275; 74174; 80053; 83880; 84484; 85025; 93005; Q9967

== ENCOUNTER 2024-09-19 14:23 | Outpatient (CLI) | payer OTHER ==
[2024-09-19 14:52] LABS: %Basophils 1.4 % (0.0-1.0); %Eosinophils 4.3 % (0.0-10.0); %Lymphocytes 30.5 % (21.0-51.0); %Monocytes 11.4 % (0.0-10.0); %Neutrophils 51.8 % (42.0-75.0); Hemoglobin 14.8 g/dL (14.0-18.0); Mean Corpuscular HGB CONC 32.9 g/dL (32.0-36.0); Mean Corpuscular Hemoglobin 29.3 pg (27.0-31.0); Mean Corpuscular Volume 89.1 fL (78.0-98.0); Mean Platelet Volume 8.7 fL (7.4-10.4); Platelet Count 247 10x3/uL (130-400); RBC Distribution Width 13.5 % (11.5-14.5); Red Blood Cell (RBC) Count 5.05 mill/uL (4.70-6.10)
[2024-09-19 15:12] LABS: Anion Gap 9 mmol/L (10-20); BUN (Urea Nitrogen) 8 mg/dL (8.4-25.7); Calc. Creatinine Clearance 0 mL/min (70-130); Calcium 9.2 mg/dL (7.8-10.44); Carbon Dioxide 31 mmol/L (23-31); Chloride 103 mmol/L (98-107); Estimated GFR 88; Glucose 86 mg/dL (83-110); Potassium 3.9 mmol/L (3.5-5.1); Sodium 139 mmol/L (136-145)
== END 2024-09-19 14:24 | disposition home or self-care (01) ==
LOC: LABBT 14:23
PROVIDERS: ATTEND Internal Medicine Cardiovascular Disease
DX: Z01.812 Encounter for preprocedural laboratory examination (principal)
CPT/HCPCS: 80048; 85025

== ENCOUNTER 2024-09-20 05:58 | Day surgery (SDC) | payer OTHER ==
[2024-09-19 14:49] VITALS: BMI 27.4
[2024-09-20] MEDS ORDERED: fentaNYL 50 mcg/mL 1 mL Vial ONE (06:13)
[2024-09-20] MEDS ORDERED: Nitroglycerin 50 MG/250 ML BOT 250 ML ONE (06:14)
[2024-09-20] MEDS ORDERED: Midazolam HCl 2 mg/2 ml Vial ONE (06:14)
[2024-09-20] MEDS ORDERED: Heparin 10,000 UNITS/ 10 ML VIAL ONE (06:14)
[2024-09-20] MEDS ORDERED: Verapamil 5 MG/2 ML VIAL ONE (06:22)
[2024-09-20] MEDS ORDERED: Acetaminophen/Codeine 30-300mg Tablet ONE (12:03)
[2024-09-20] MEDS ORDERED: Iopamidol 370 76% 100 ML VIAL ONE (12:58)
== END 2024-09-20 14:30 | disposition home or self-care (01) ==
LOC: CCL 05:58
PROVIDERS: ATTEND Internal Medicine Cardiovascular Disease
PROC: 02F03ZZ Fragmentation in Coronary Artery, One Artery, Percutaneous Approach (ICD-10-PCS; principal; 2024-09-20)
DX: I10 Essential (primary) hypertension (principal); I71.21 Aneurysm of the ascending aorta, without rupture; I87.2 Venous insufficiency (chronic) (peripheral); I83.811 Varicose veins of right lower extremity with pain; I25.10 Atherosclerotic heart disease of native coronary artery without angina pectoris; K76.0 Fatty (change of) liver, not elsewhere classified; E11.9 Type 2 diabetes mellitus without complications; E78.2 Mixed hyperlipidemia; Z95.1 Presence of aortocoronary bypass graft; Z87.891 Personal history of nicotine dependence; Z98.890 Other specified postprocedural states; Z88.8 Allergy status to other drugs, medicaments and biological substances; Z79.82 Long term (current) use of aspirin; Z79.84 Long term (current) use of oral hypoglycemic drugs; Z79.02 Long term (current) use of antithrombotics/antiplatelets; Z79.899 Other long term (current) drug therapy
CPT/HCPCS: 85347; 92928; 92972; 92978; 93458; 99152; 99153; C1725; C1753; C1761; C1769; C1874; C1887; C1894; C9600; J1644; J2250; J3010

== ENCOUNTER 2025-08-08 09:16 | Outpatient (CLI) | payer OTHER ==
[2025-08-08 09:46] LABS: Estimated GFR - POC 71.0
[2025-08-08] MEDS ORDERED: Iopamidol 370 76% 100 ML VIAL ONE (13:46)
== END 2025-08-08 09:17 | disposition home or self-care (01) ==
LOC: CT 09:16
PROVIDERS: ATTEND Internal Medicine Cardiovascular Disease
DX: I71.21 Aneurysm of the ascending aorta, without rupture (principal); R91.8 Other nonspecific abnormal finding of lung field
CPT/HCPCS: 36415; 71275; 82565; Q9967

== ENCOUNTER 2025-10-03 12:08 | Outpatient (CLI) | payer OTHER | END 2025-10-03 12:09 | disposition home or self-care (01) | LOC: ULT 12:08 | PROVIDERS: ATTEND Urology | DX: R33.9 Retention of urine, unspecified (principal); N28.1 Cyst of kidney, acquired; N28.89 Other specified disorders of kidney and ureter | CPT/HCPCS: 76770 ==